=== PATIENT | male | born 1970 | race Two or more races ===

== ENCOUNTER → 2022-02-08 09:20 | Outpatient (BNVA) | payer OTHER, SELFPAY | PROVIDERS: PCP Podiatrist Foot & Ankle Surgery; Visit Provider Anesthesiology | DX: E11.42 Type 2 diabetes mellitus with diabetic polyneuropathy (principal); M79.671 Pain in right foot; M79.672 Pain in left foot; G89.4 Chronic pain syndrome | CPT/HCPCS: 99202 ==

== ENCOUNTER → 2022-11-08 09:45 | Outpatient (BNVA) | payer MEDICARE, MEDICAID, SELFPAY | PROVIDERS: PCP Podiatrist Foot & Ankle Surgery; Visit Provider Anesthesiology | DX: G89.4 Chronic pain syndrome (principal); E11.42 Type 2 diabetes mellitus with diabetic polyneuropathy; M79.671 Pain in right foot; M79.672 Pain in left foot | CPT/HCPCS: 17999; 99212; J7336 ==

== ENCOUNTER 2023-02-07 09:48 | Outpatient (AMB) | payer OTHER, SELFPAY ==
--- NOTE | 2023-02-07 10:11 | MHC.OFFVIS ---
Intake Vital Signs 02/07/23 10:16 02/07/23 12:09 02/07/23 12:11 Height 5 ft 7 in Weight 151 lb BMI 23.6 BP 130/86 132/88 138/88 Blood Pressure Location Lt brachial Rt brachial Rt brachial Position Sitting Sitting Sitting Respiration 18 16 16 Pulse 66 58 69 Pulse Source Pulse Oximeter Pulse Oximeter Pulse Oximeter Pulse Oximetry (%) 100 99 98 Oxygen Delivery Method Room Air Room Air Room Air Comment 15 mins on qutenza 30 mins on qutenza Intake Visit Reasons: Qutenza Intake Note: Patient comes in for Qutenza topical system, he reports pain level of 7-8/10.? Allergies No Known Allergies Allergy (Verified 02/07/23 10:16) HPI HPI Comments History of Present Illness Details Mr. Worley is back in my office for Qutenza treatment. The patient was prescribed EMLA cream. He made application of EMLA cream. Is ready for application of qutenza patches.Reports minimal pain relieve due to Qutenza application. More permanent solution with Nevro SCS was offered to the patient. The patient is negative about it, but took the brochure to read. He will let us know about his ultimate decision. Prior: very pleasant 51 years old gentleman who presents in my office with complains on diabetic polyneuropathy.? He is suffering from diabetes type 2 for many years.? He used to ignore his diabetic medications and his hemoglobin A1c was running very high.? Now he is taking his medications regularly and his hemoglobin A1c is 6.9.? However the damage to the a peripheral nerves apparently was done.? And now he is suffering from severe polyneuropathy of bilateral lower extremities below the level of the knees.? He reports that he cannot do activities of daily living and I cannot take care of himself because of this pain.? He is on permanent disability.? Reports that walking aggravates his pain the most.? His pain is all day long with 7/10 range of pain.? The most severe pain he feels at [place] when his pain is 8/10.? He reports his pain in terms of tissue damage is sharp, cutting, cramping, crushing, hot burning, searing, tiring, exhausting, fearful.is taking metformin to treat his diabetes.? He is also taking levothyroxine.? He is on atorvastatin gabapentin and lorazepam.? He was under care of Dr. Anglin color printer operator and he was told that the his condition does not have meaningful treatment.? He was offered to types of topical medications which did not help his pain.? He reports that gabapentin also does not help his pain. His past medical history significant for diabetes kidney stones , he denies any past surgical history. Social history:? He is disabled individual he stop smoking cigarettes denies drinking alcohol admits caffeinated beverages but denies recreational drugs [facility] Medical History (Updated 02/08/22 @ 10:13 by Vivek Vera MD) Controlled type 2 diabetes with neuropathy Essential hypertension Family history of colon cancer History of nephrolithiasis History of suicidal ideation History of tobacco use Hypothyroidism Severe episode of recurrent major depressive disorder Review of Systems Const All systems reviewed & are unremarkable except as noted in HPI and below ENT Reports Normal hearing present Neuro Reports Normal hearing present, Denies Abnormal speech present, Denies confusion and Denies Sensory deficit (Neuro) Psych Denies confusion Physical Exam Vital Signs: Last Vital Signs Pulse 69 02/07/23 12:11 Resp 16 02/07/23 12:11 BP 138/88 02/07/23 12:11 Pulse Ox 98 02/07/23 12:11 Oxygen Delivery Method Room Air 02/07/23 12:11 BMI result Body Mass Index 23.6 Const General: No confusion Orientation/consciousness: No confusion Eyes General: appearance normal, both eyes and all related structures Pupils: Equal, round and reactive pupils present EOM: EOMs intact bilaterally Neck Neck: Yes full ROM Chest Chest palpation & inspection: normal inspection of the chest Resp Effort & Inspection: normal respiratory effort, able to speak in complete sentences, normal respiratory pattern, no audible wheezes and no cough Cardio Jugular venous distension: no JVD GI Inspection: Yes normal to inspection Neuro General: No confusion Cranial nerves: Yes Equal, round and reactive pupils present and Yes Normal hearing present Speech: No Abnormal speech present Gait exam (Neuro): Normal gait present Motor exam (neuro): 5/5 motor strength present throughout Sensory Exam: No Sensory deficit (Neuro) Extrem General: Yes normal to inspection, Yes full ROM, Yes no clubbing, cyanosis or edema, Yes no pedal edema, Yes no calf tenderness, Yes normal gait and No pedal edema Psych Speech and movement: Normal speech and movement present Affect: normal affect Attitude: cooperative Thought process: Normal thought process present Thought content: Normal thought content present Insight: Good insight present (Psych) Judgement: Good judgement present (Psych) Assessment & Plan Assessment & Plan (1) Diabetic polyneuropathy: Code(s): E11.42 - Type 2 diabetes mellitus with diabetic polyneuropathy (2) Type 2 diabetes mellitus: Code(s): E11.9 - Type 2 diabetes mellitus without complications (3) Bilateral foot pain: Code(s): M79.671 - Pain in right foot; M79.672 - Pain in left foot (4) Chronic pain syndrome: Code(s): G89.4 - Chronic pain syndrome Plan Ruel attended today treatment with Qutenza, vital signs are as above. Next appointment in 3 months. Butch ALMAGUER explained the patient will be thinking about it. The brochure Butch was given to the patient. Coding Level of Care Code Est Pt Level 3 (44646) Diagnoses Diabetic polyneuropathy E11.42 Type 2 diabetes mellitus E11.9 Bilateral foot pain M79.671; M79.672 Chronic pain syndrome G89.4
[2023-02-07 10:16] VITALS: BP 130/86; PULSE 66; RESP 18; O2SAT 100; BMI 23.6
[2023-02-07 12:09] VITALS: BP 132/88; PULSE 58; RESP 16; O2SAT 99
[2023-02-07 12:11] VITALS: BP 138/88; PULSE 69; RESP 16; O2SAT 98
== END 2023-02-07 11:53 | disposition home or self-care (01) ==
PROVIDERS: PCP Podiatrist Foot & Ankle Surgery; Visit Provider Anesthesiology
DX: E11.42 Type 2 diabetes mellitus with diabetic polyneuropathy (principal); M79.671 Pain in right foot; M79.672 Pain in left foot; G89.4 Chronic pain syndrome
CPT/HCPCS: 17999; 99213

== ENCOUNTER → 2023-02-07 09:48 | Outpatient (BNVA) | payer OTHER, SELFPAY | PROVIDERS: PCP Podiatrist Foot & Ankle Surgery; Visit Provider Anesthesiology | DX: E11.42 Type 2 diabetes mellitus with diabetic polyneuropathy (principal); G89.4 Chronic pain syndrome; M79.671 Pain in right foot; M79.672 Pain in left foot; Z79.899 Other long term (current) drug therapy | CPT/HCPCS: 99212 ==

== ENCOUNTER 2023-05-10 13:13 | Outpatient (AMB) | payer OTHER, SELFPAY ==
--- NOTE | 2023-05-10 13:27 | MHC.OFFVIS ---
Intake Vital Signs 05/10/23 14:25 05/10/23 14:25 05/10/23 14:41 Height 5 ft 7 in Weight 153 lb BMI 24.0 BP 132/88 132/79 144/78 H Blood Pressure Location Lt brachial Lt brachial Lt brachial Position Sitting Sitting Sitting Pulse 69 60 61 Pulse Source Pulse Oximeter Pulse Oximeter Pulse Oximeter Pulse Oximetry (%) 97 98 98 Oxygen Delivery Method Room Air Room Air Room Air Comment 15 mins after qutenza application Intake Visit Reasons: Qutenza Application/confirmed Intake Note: Pain today 12/27 Engine Specialist Required: No Accompanied by: Self / Same As Patient Allergies No Known Allergies Allergy (Verified 05/10/23 13:32) HPI HPI Comments History of Present Illness Details Patient presents for 3rd application of capsaicin 8% topical patch for diabetic neuropathy in bilateral feet. Patient also reports chronic left hip pain with walking or weight bearing. He denies any back pain that radiates to his lower extremities. Patient reports he completed left hip imaging last year and was told it was ok. These imaging reports are not available today. Denies any recent cough, cold, infection, fever or other significant changes in medical history since last office visit. PRIOR 02/07/23 Dr. Vera: Mr. Worley is back in my office for Qutenza treatment. The patient was prescribed EMLA cream. He made application of EMLA cream. Is ready for application of qutenza patches.Reports minimal pain relieve due to Qutenza application. More permanent solution with Nevro SCS was offered to the patient. The patient is negative about it, but took the brochure to read. He will let us know about his ultimate decision. PRIOR Dr. Vera: Mr. Worley is very pleasant 51 years old gentleman who presents in my office with complains on diabetic polyneuropathy. He is suffering from diabetes type 2 for many years. He used to ignore his diabetic medications and his hemoglobin A1c was running very high. Now he is taking his medications regularly and his hemoglobin A1c is 6.9. However the damage to the a peripheral nerves apparently was done. And now he is suffering from severe polyneuropathy of bilateral lower extremities below the level of the knees. He reports that he cannot do activities of daily living and I cannot take care of himself because of this pain. He is on permanent disability. Reports that walking aggravates his pain the most. His pain is all day long with 7/10 range of pain. The most severe pain he feels at [place] when his pain is 8/10. He reports his pain in terms of tissue damage is sharp, cutting, cramping, crushing, hot burning, searing, tiring, exhausting, fearful.is taking metformin to treat his diabetes. He is also taking levothyroxine. He is on atorvastatin gabapentin and lorazepam. He was under care of Dr. Anglin 411 directory assistance operator and he was told that the his condition does not have meaningful treatment. He was offered to types of topical medications which did not help his pain. He reports that gabapentin also does not help his pain. His past medical history significant for diabetes kidney stones , he denies any past surgical history. Social history: He is disabled individual he stop smoking cigarettes denies drinking alcohol admits caffeinated beverages but denies recreational drugs. [facility] Medical History History of suicidal ideation Severe episode of recurrent major depressive disorder Essential hypertension Controlled type 2 diabetes with neuropathy Hypothyroidism Family history of colon cancer History of tobacco use History of nephrolithiasis Review of Systems Const All systems reviewed & are unremarkable except as noted in HPI and below Physical Exam Vital Signs: Last Vital Signs Pulse 61 05/10/23 14:41 BP 144/78 H 05/10/23 14:41 Pulse Ox 98 05/10/23 14:41 Oxygen Delivery Method Room Air 05/10/23 14:41 BMI result Body Mass Index 24.0 General: Appears afebrile. Alert and oriented. Mood and affect appropriate. Follows and participates in conversation appropriately. Respiratory effort is unlabored. No cough. Able to transition from sit to stand unassisted. Ambulates with bilaterally normal heel strike and toe off. Back/Spine/Pelvis Cervical Spine: cervical ROM normal and No Cervical spine tenderness Thoracic/Lumbar Spine: thoracic and lumbar spine normal to inspection, No Thoracic/lumbar spine scar(s), thoraco-lumbar ROM normal, Lasegue's sign negative, straight leg raise negative bilaterally, No thoracic spinal tenderness and No lumbar spinal tenderness Pelvis: buttock tenderness on the left Sacroiliac joints: bilaterally (Negative Patricks and Pelvic compression.) tender to palpation Extrem Other: There is a decreased sensation over the soles of the feet and toes. Reports numbness, burning, hot, tingling in both feet, worse at night time. No breaks in the skin. No soft tissue swelling or warmth. +2 pedal pulses bilaterally. General: Yes capillary refill normal, Yes no clubbing, cyanosis or edema and Yes no calf tenderness Left lower extremity: hip/thigh (Mild pain with FADIR) Details: normal to inspection, tenderness Location: of the hip Location: laterally and over the great trochanter and normal ROM; no swelling, no ecchymosis, no crepitus and no unusual warmth Office Procedures Topical Capsaicin Date 1:: 11/08/22 Date 2:: 02/07/23 Date 3:: 05/10/23 Main area of pain on the body: Bilateral feet and toes Location of left foot pain: Plantar, Dorsal, Medial and Lateral Location of right foot pain: Plantar, Dorsal, Medial and Lateral Quality of pain: Aching, Nagging, Burning, Numb-like, Tiring, Shooting and Sharp Details:: Two patches, 560 cm2 were utilized per each foot. EMLA Cream (lidocaine 2.5% and prilocaine 2.5%) was applied at home by patient prior to application of the patches. The patient tolerated the procedure well. Patient?s vitals signs remained stable throughout the procedure. Patient was able to complete the stipulated 30 minutes of the therapeutic application without any discomfort. Office Meds capsaicin-skin cleanser 8 % topical kit Performing Provider: JESUS Colunga Performing Location: [facility] Administered by: JESUS Colunga on 05/10/23 14:05 Dose Route Admin Location Dispensed Lot Number Expiration Date [facility] Web User Experience Strategist 4 ea topical [facility] 4 ea [id number] 06/20/25 17613-142-49 [employer] Results Reviewed Results Reviewed: No imaging reports are available for review. Assessment & Plan Assessment & Plan (1) Diabetic polyneuropathy: Code(s): E11.42 - Type 2 diabetes mellitus with diabetic polyneuropathy (2) Bilateral foot pain: Code(s): M79.671 - Pain in right foot; M79.672 - Pain in left foot (3) Left hip pain: Code(s): M25.552 - Pain in left hip (4) Chronic pain syndrome: Code(s): G89.4 - Chronic pain syndrome Plan Patient is status post 3rd round of application of topical capsaicin 8% for peripheral diabetic neuropathy in bilateral feet. Patient tolerated the procedure without significant discomfort with application of EMLA cream prior to the procedure. He was discharged home in stable condition with discharge instructions. Next Qutenza application scheduled in 3 months. For his left hip pain, we will proceed with xray. Recommend formal physical therapy. All questions and concerns were answered and the patient agreed with the plan. Follow up for xray results and sooner as needed. Greater than 36 minutes were spent in seeing the patient, therapeutic application and in coordination and documentation of the care. Orders: Orders XR hip LT w PEL1V Today M25.552 - Pain in left hip AMB Capsaicin Patch - Practice Supplied Today E11.42 - Type 2 diabetes mellitus with diabetic polyneuropathy, M79.671 - Pain in right foot, M79.672 - Pain in left foot Coding Level of Care Code Est Pt Level 4 (15861) Diagnoses Diabetic polyneuropathy E11.42 Bilateral foot pain M79.671; M79.672 Left hip pain M25.552 Chronic pain syndrome G89.4
[2023-05-10 14:25] VITALS: BP 132/79; BP 132/88; PULSE 60; PULSE 69; O2SAT 97; O2SAT 98; BMI 24.0
[2023-05-10 14:41] VITALS: BP 144/78; PULSE 61; O2SAT 98
== END 2023-05-10 14:46 | disposition home or self-care (01) ==
PROVIDERS: PCP Podiatrist Foot & Ankle Surgery; Visit Provider Nurse Practitioner Family
DX: E11.42 Type 2 diabetes mellitus with diabetic polyneuropathy (principal); M79.671 Pain in right foot; M79.672 Pain in left foot; M25.552 Pain in left hip; G89.4 Chronic pain syndrome
CPT/HCPCS: 17999; 99214

== ENCOUNTER → 2023-05-10 13:13 | Outpatient (BNVA) | payer OTHER, SELFPAY | PROVIDERS: PCP Podiatrist Foot & Ankle Surgery; Visit Provider Nurse Practitioner Family | DX: M25.552 Pain in left hip (principal); M79.671 Pain in right foot; M79.672 Pain in left foot; E11.42 Type 2 diabetes mellitus with diabetic polyneuropathy; G89.4 Chronic pain syndrome | CPT/HCPCS: 17999; 99212; J7336 ==

== ENCOUNTER 2023-05-11 11:21 | Outpatient (REF) | payer OTHER, SELFPAY ==
--- NOTE | ~2023-05-11 | XR_ITS ---
EXAMINATION: XR HIP, LEFT CLINICAL INFORMATION: Pain COMPARISON: None available. TECHNIQUE: Single view the pelvis 2 views of the left hip FINDINGS: No acute visible fracture or dislocation. Joint spaces and alignment are maintained. Soft tissues are unremarkable. XR/XR hip LT w PEL1V IMPRESSION: No acute visible fracture or dislocation.
== END 2023-05-11 11:22 | disposition home or self-care (01) ==
LOC: HO.XRAY 11:21
PROVIDERS: Visit Provider Nurse Practitioner Family
DX: M25.552 Pain in left hip (principal)
CPT/HCPCS: 73502

== ENCOUNTER 2023-08-22 09:54 | Outpatient (AMB) | payer OTHER, SELFPAY ==
--- NOTE | 2023-08-22 09:55 | MHC.OFFVIS ---
Intake Vital Signs 08/22/23 10:04 08/22/23 10:37 08/22/23 11:05 Height 5 ft 7 in Weight 151 lb 8 oz BMI 23.7 BP 134/102 H 106/74 122/74 Blood Pressure Location Lt brachial Rt brachial Rt brachial Position Sitting Sitting Sitting Respiration 16 16 16 Pulse 68 70 71 Pulse Source Pulse Oximeter Pulse Oximeter Pulse Oximeter Pulse Oximetry (%) 100 98 98 Oxygen Delivery Method Room Air Room Air Room Air Comment 15 min on Qutenza 30 min on Qutenza Intake Visit Reasons: Qutenza application/ LVM Intake Note: Patient comes in for Qutenza treatment. Reports pain 7/10. Allergies No Known Allergies Allergy (Verified 08/22/23 10:40) HPI HPI Comments History of Present Illness Details Patient presents for 4rd application of capsaicin 8% topical patch for diabetic neuropathy in bilateral feet. He reported today minor infection on the right foot in the 2nd and 3rd toe, he reported that he applied antibiotics, he said that infection is better. We decided that if he will be feeling more discomfort today because of this infection will stop procedure earlier. . He made application of EMLA cream. Is ready for application of qutenza patches.Reports minimal pain relieve due to Qutenza application. He is negative for Nevro SCS. Mr. Worley is very pleasant 51 years old gentleman who presents in my office with complains on diabetic polyneuropathy. He is suffering from diabetes type 2 for many years. He used to ignore his diabetic medications and his hemoglobin A1c was running very high. Now he is taking his medications regularly and his hemoglobin A1c is 6.9. However the damage to the a peripheral nerves apparently was done. And now he is suffering from severe polyneuropathy of bilateral lower extremities below the level of the knees. He reports that he cannot do activities of daily living and I cannot take care of himself because of this pain. He is on permanent disability. Reports that walking aggravates his pain the most. His pain is all day long with 7/10 range of pain. [facility] Medical History History of suicidal ideation Severe episode of recurrent major depressive disorder Essential hypertension Controlled type 2 diabetes with neuropathy Hypothyroidism Family history of colon cancer History of tobacco use History of nephrolithiasis Review of Systems Const All systems reviewed & are unremarkable except as noted in HPI and below Physical Exam Vital Signs: Last Vital Signs Pulse 71 08/22/23 11:05 Resp 16 08/22/23 11:05 BP 122/74 08/22/23 11:05 Pulse Ox 98 08/22/23 11:05 Oxygen Delivery Method Room Air 08/22/23 11:05 BMI result Body Mass Index 23.7 General: Appears afebrile. Alert and oriented. Mood and affect appropriate. Follows and participates in conversation appropriately. Respiratory effort is unlabored. No cough. Able to transition from sit to stand unassisted. Ambulates with bilaterally normal heel strike and toe off. Back/Spine/Pelvis Cervical Spine: cervical ROM normal and No Cervical spine tenderness Thoracic/Lumbar Spine: thoracic and lumbar spine normal to inspection, No Thoracic/lumbar spine scar(s), thoraco-lumbar ROM normal, Lasegue's sign negative, straight leg raise negative bilaterally, No thoracic spinal tenderness and No lumbar spinal tenderness Pelvis: buttock tenderness on the left Sacroiliac joints: bilaterally (Negative Patricks and Pelvic compression.) tender to palpation Extrem Other: There is a decreased sensation over the soles of the feet and toes. Reports numbness, burning, hot, tingling in both feet, worse at night time. No breaks in the skin. No soft tissue swelling or warmth. +2 pedal pulses bilaterally. General: Yes capillary refill normal, Yes no clubbing, cyanosis or edema and Yes no calf tenderness Left lower extremity: hip/thigh (Mild pain with FADIR) Details: normal to inspection, tenderness Location: of the hip Location: laterally and over the great trochanter and normal ROM; no swelling, no ecchymosis, no crepitus and no unusual warmth Office Procedures Topical Capsaicin Date 4:: 08/22/23 Laterality: Bilateral Location of left foot pain: Plantar Location of right foot pain: Plantar Quality of pain: Burning, Throbbing, Numb-like, Tiring and Unbearable Details:: Two patches, 560 cm2?were utilized per each foot.? EMLA Cream (lidocaine 2.5% and prilocaine 2.5%) was applied at home by patient prior to application of the patches. The patient tolerated the procedure well. Patient?s vitals signs remained stable throughout the procedure. Patient was able to complete the stipulated 30 minutes of the therapeutic application without any discomfort.? Office Meds capsaicin-skin cleanser 8 % topical kit Performing Provider: Vivek Vera MD Performing Location: [facility] Administered by: Vivek Vera MD on 08/22/23 10:07 Dose Route Admin Location Dispensed Lot Number Expiration Date [employer] Account Manager Sales Representative 4 ea topical [facility] 4 ea [id number] 11/18/25 [id number] [employer] Assessment & Plan Assessment & Plan (1) Bilateral foot pain: Code(s): M79.671 - Pain in right foot; M79.672 - Pain in left foot (2) Diabetic polyneuropathy: Code(s): E11.42 - Type 2 diabetes mellitus with diabetic polyneuropathy (3) Type 2 diabetes mellitus: Code(s): E11.9 - Type 2 diabetes mellitus without complications (4) Left hip pain: Code(s): M25.552 - Pain in left hip (5) Chronic pain syndrome: Code(s): G89.4 - Chronic pain syndrome Plan Patient is status post 4th application of topical capsaicin 8% for peripheral diabetic neuropathy in bilateral feet. Patient tolerated the procedure without significant discomfort with application of EMLA cream prior to the procedure. He was discharged home in stable condition with discharge instructions. Next Qutenza application scheduled in 3 months. For his left hip pain, we will proceed with xray. Recommend formal physical therapy. All questions and concerns were answered and the patient agreed with the plan. Follow up for xray results and sooner as needed. 38 minutes were spent in seeing the patient, therapeutic application and in coordination and documentation of the care. Orders: Orders AMB Capsaicin Patch - Practice Supplied Today E11.42 - Type 2 diabetes mellitus with diabetic polyneuropathy, E11.9 - Type 2 diabetes mellitus without complications, M79.671 - Pain in right foot, M79.672 - Pain in left foot Coding Level of Care Code Est Pt Level 3 (91590) Procedure Only Diagnoses Bilateral foot pain M79.671; M79.672 Diabetic polyneuropathy E11.42 Type 2 diabetes mellitus E11.9 Left hip pain M25.552 Chronic pain syndrome G89.4
[2023-08-22 10:04] VITALS: BP 134/102; PULSE 68; RESP 16; O2SAT 100; BMI 23.7
[2023-08-22 10:37] VITALS: BP 106/74; PULSE 70; RESP 16; O2SAT 98
[2023-08-22 11:05] VITALS: BP 122/74; PULSE 71; RESP 16; O2SAT 98
== END 2023-08-22 11:00 | disposition home or self-care (01) ==
PROVIDERS: PCP Podiatrist Foot & Ankle Surgery; Visit Provider Anesthesiology
DX: E11.42 Type 2 diabetes mellitus with diabetic polyneuropathy (principal); M79.671 Pain in right foot; M79.672 Pain in left foot; M25.552 Pain in left hip
CPT/HCPCS: 17999; 99213

== ENCOUNTER → 2023-08-22 09:54 | Outpatient (BNVA) | payer OTHER, SELFPAY | PROVIDERS: PCP Podiatrist Foot & Ankle Surgery; Visit Provider Anesthesiology | DX: E11.42 Type 2 diabetes mellitus with diabetic polyneuropathy (principal); M79.671 Pain in right foot; M79.672 Pain in left foot; M25.552 Pain in left hip; G89.4 Chronic pain syndrome | CPT/HCPCS: 17999; 99212; J7336 ==

== ENCOUNTER 2023-11-28 09:48 | Outpatient (AMB) | payer OTHER, SELFPAY ==
--- NOTE | 2023-11-28 09:53 | MHC.OFFVIS ---
Vital Signs 11/28/23 10:03 11/28/23 10:43 11/28/23 11:22 Height 5 ft 7 in Weight 148 lb 2 oz BMI 23.2 BP 132/90 H 116/74 138/78 Blood Pressure Location Lt brachial Rt brachial Rt brachial Position Sitting Sitting Sitting Respiration 16 16 16 Pulse 100 75 67 Pulse Source Pulse Oximeter Pulse Oximeter Pulse Oximeter Pulse Oximetry (%) 96 96 98 Oxygen Delivery Method Room Air Room Air Room Air Comment 15 mins on Qutenza 30 mins on Qutenza Intake Visit Reasons: Qutenza Intake Note: Patient comes in for Qutenza treatment. Reports pain 7/10. Allergies No Known Allergies Allergy (Verified 11/28/23 10:03) HPI Comments Details: Patient presents for 5th application of capsaicin 8% topical patch for diabetic neuropathy in bilateral feet. He made application of EMLA cream. Is ready for application of qutenza patches.Reports minimal pain relieve due to Qutenza application. He is negative for Nevro SCS. Mr. Worley is very pleasant 51 years old gentleman who presents in my office with complains on diabetic polyneuropathy. He is suffering from diabetes type 2 for many years. He used to ignore his diabetic medications and his hemoglobin A1c was running very high. Now he is taking his medications regularly and his hemoglobin A1c is 6.9. However the damage to the a peripheral nerves apparently was done. And now he is suffering from severe polyneuropathy of bilateral lower extremities below the level of the knees. He reports that he cannot do activities of daily living and I cannot take care of himself because of this pain. He is on permanent disability. Reports that walking aggravates his pain the most. His pain is all day long with 7/10 range of pain. [facility] Medical History History of suicidal ideation Severe episode of recurrent major depressive disorder Essential hypertension Controlled type 2 diabetes with neuropathy Hypothyroidism Family history of colon cancer History of tobacco use History of nephrolithiasis Review of Systems Const All systems reviewed & are unremarkable except as noted in HPI and below Physical Exam Vital Signs: Last Vital Signs Pulse 67 11/28/23 11:22 Resp 16 11/28/23 11:22 BP 138/78 11/28/23 11:22 Pulse Ox 98 11/28/23 11:22 Oxygen Delivery Method Room Air 11/28/23 11:22 BMI result Body Mass Index 23.2 General: Appears afebrile. Alert and oriented. Mood and affect appropriate. Follows and participates in conversation appropriately. Respiratory effort is unlabored. No cough. Able to transition from sit to stand unassisted. Ambulates with bilaterally normal heel strike and toe off. Back/Spine/Pelvis Cervical Spine: cervical ROM normal and No Cervical spine tenderness Thoracic/Lumbar Spine: thoracic and lumbar spine normal to inspection, No Thoracic/lumbar spine scar(s), thoraco-lumbar ROM normal, Lasegue's sign negative, straight leg raise negative bilaterally, No thoracic spinal tenderness and No lumbar spinal tenderness Pelvis: buttock tenderness on the left Sacroiliac joints: bilaterally (Negative Patricks and Pelvic compression.) tender to palpation Extrem Other: There is a decreased sensation over the soles of the feet and toes. Reports numbness, burning, hot, tingling in both feet, worse at night time. No breaks in the skin. No soft tissue swelling or warmth. +2 pedal pulses bilaterally. General: Yes capillary refill normal, Yes no clubbing, cyanosis or edema and Yes no calf tenderness Left lower extremity: hip/thigh (Mild pain with FADIR) Details: normal to inspection, tenderness Location: of the hip Location: laterally and over the great trochanter and normal ROM; no swelling, no ecchymosis, no crepitus and no unusual warmth Office Meds capsaicin-skin cleanser 8 % topical kit Performing Provider: Vivek Vera MD Performing Location: [facility] [place] [facility] Administered by: Vivek Vera MD on 11/28/23 10:12 Dose Route Admin Location Dispensed Lot Number Expiration Date [facility] Dental Billing Specialist 4 ea topical 4 ea [id number] 12/18/25 60531-102-37 [employer] Assessment & Plan Assessment & Plan (1) Type 2 diabetes mellitus: Code(s): E11.9 - Type 2 diabetes mellitus without complications Category: Medical (2) Diabetic polyneuropathy: Code(s): E11.42 - Type 2 diabetes mellitus with diabetic polyneuropathy Category: Medical (3) Bilateral foot pain: Code(s): M79.671 - Pain in right foot; M79.672 - Pain in left foot Category: Medical (4) Chronic pain syndrome: Code(s): G89.4 - Chronic pain syndrome Category: Medical Plan The patient will receive the application of Qutenza today. After this procedure today next appointment is as needed. Orders: Orders AMB Capsaicin Patch - Practice Supplied Today E11.42 - Type 2 diabetes mellitus with diabetic polyneuropathy, E11.9 - Type 2 diabetes mellitus without complications, G89.4 - Chronic pain syndrome, M79.671 - Pain in right foot, M79.672 - Pain in left foot Coding Level of Care Code Est Pt Level 3 (08313) Procedure Only Diagnoses Type 2 diabetes mellitus E11.9 Diabetic polyneuropathy E11.42 Bilateral foot pain M79.671; M79.672 Chronic pain syndrome G89.4
[2023-11-28 10:03] VITALS: BP 132/90; PULSE 100; RESP 16; O2SAT 96; BMI 23.2
[2023-11-28 10:43] VITALS: BP 116/74; PULSE 75; RESP 16; O2SAT 96
[2023-11-28 11:22] VITALS: BP 138/78; PULSE 67; RESP 16; O2SAT 98
== END 2023-11-28 11:26 | disposition home or self-care (01) ==
PROVIDERS: PCP Podiatrist Foot & Ankle Surgery; Visit Provider Anesthesiology
DX: E11.42 Type 2 diabetes mellitus with diabetic polyneuropathy (principal); M79.671 Pain in right foot; M79.672 Pain in left foot; G89.4 Chronic pain syndrome
CPT/HCPCS: 17999; 99213

== ENCOUNTER → 2023-11-28 09:48 | Outpatient (BNVA) | payer OTHER, SELFPAY | PROVIDERS: PCP Podiatrist Foot & Ankle Surgery; Visit Provider Anesthesiology | DX: E11.42 Type 2 diabetes mellitus with diabetic polyneuropathy (principal); M79.671 Pain in right foot; M79.672 Pain in left foot; G89.4 Chronic pain syndrome | CPT/HCPCS: 17999; 99212; J7336 ==

== ENCOUNTER 2024-03-05 09:24 | Outpatient (AMB) | payer OTHER, SELFPAY ==
--- NOTE | 2024-03-05 09:27 | MHC.OFFVIS ---
Vital Signs 03/05/24 09:32 03/05/24 10:57 03/05/24 10:58 Height 5 ft 7 in Weight 149 lb BMI 23.3 BP 145/78 H 138/84 138/82 Blood Pressure Location Lt brachial Lt brachial Rt brachial Position Sitting Sitting Sitting Respiration 14 14 16 Pulse 64 65 66 Pulse Source Pulse Oximeter Pulse Oximeter Pulse Oximeter Pulse Oximetry (%) 98 97 97 Oxygen Delivery Method Room Air Room Air Room Air Comment 15 mins on Qutenza 30 mins on Qutenza Intake Visit Reasons: Qutenza Intake Note: Patient comes in for Qutenza treatment. Reports pain 6-710. Allergies No Known Allergies Allergy (Verified 03/05/24 10:59) HPI Comments Details: Patient presents for 6th application of capsaicin 8% topical patch for diabetic neuropathy in bilateral feet. He he did not make application of EMLA cream. He is ready for application he insists on applying medication without pretreatment with local anesthetic. He stated that last time he had it also without local anesthetic. I explained to him possibility of severe burning sensation, severe blood pressure elevation. Patient stated that he is okay to go for it. He is negative for Nevro SCS. Mr. Worley is very pleasant 51 years old gentleman who presents in my office with complains on diabetic polyneuropathy. He is suffering from diabetes type 2 for many years. He used to ignore his diabetic medications and his hemoglobin A1c was running very high. Now he is taking his medications regularly and his hemoglobin A1c is 6.9. However the damage to the a peripheral nerves apparently was done. And now he is suffering from severe polyneuropathy of bilateral lower extremities below the level of the knees. He reports that he cannot do activities of daily living and I cannot take care of himself because of this pain. He is on permanent disability. Reports that walking aggravates his pain the most. His pain is all day long with 7/10 range of pain. [facility] Medical History History of suicidal ideation Severe episode of recurrent major depressive disorder Essential hypertension Controlled type 2 diabetes with neuropathy Hypothyroidism Family history of colon cancer History of tobacco use History of nephrolithiasis Review of Systems Const All systems reviewed & are unremarkable except as noted in HPI and below Physical Exam Vital Signs: Last Vital Signs Pulse 66 03/05/24 10:58 Resp 16 03/05/24 10:58 BP 138/82 03/05/24 10:58 Pulse Ox 97 03/05/24 10:58 Oxygen Delivery Method Room Air 03/05/24 10:58 BMI result Body Mass Index 23.3 General: Appears afebrile. Alert and oriented. Mood and affect appropriate. Follows and participates in conversation appropriately. Respiratory effort is unlabored. No cough. Able to transition from sit to stand unassisted. Ambulates with bilaterally normal heel strike and toe off. Back/Spine/Pelvis Cervical Spine: cervical ROM normal and No Cervical spine tenderness Thoracic/Lumbar Spine: thoracic and lumbar spine normal to inspection, No Thoracic/lumbar spine scar(s), thoraco-lumbar ROM normal, Lasegue's sign negative, straight leg raise negative bilaterally, No thoracic spinal tenderness and No lumbar spinal tenderness Pelvis: buttock tenderness on the left Sacroiliac joints: bilaterally (Negative Patricks and Pelvic compression.) tender to palpation Extrem Other: There is a decreased sensation over the soles of the feet and toes. Reports numbness, burning, hot, tingling in both feet, worse at night time. No breaks in the skin. No soft tissue swelling or warmth. +2 pedal pulses bilaterally. General: Yes capillary refill normal, Yes no clubbing, cyanosis or edema and Yes no calf tenderness Left lower extremity: hip/thigh (Mild pain with FADIR) Details: normal to inspection, tenderness Location: of the hip Location: laterally and over the great trochanter and normal ROM; no swelling, no ecchymosis, no crepitus and no unusual warmth Office Meds capsaicin-skin cleanser 8 % topical kit Performing Provider: Vivek Vera MD Performing Location: [facility] [place] [facility] Administered by: Vivek Vera MD on 03/05/24 09:30 Dose Route Admin Location Dispensed Lot Number Expiration Date [facility] Registered Sales Assistant 1 ea topical 1 ea [id number] 01/16/26 Assessment & Plan Assessment & Plan (1) Type 2 diabetes mellitus: Code(s): E11.9 - Type 2 diabetes mellitus without complications Category: Medical (2) Diabetic polyneuropathy: Code(s): E11.42 - Type 2 diabetes mellitus with diabetic polyneuropathy Category: Medical (3) Bilateral foot pain: Code(s): M79.671 - Pain in right foot; M79.672 - Pain in left foot Category: Medical (4) Chronic pain syndrome: Code(s): G89.4 - Chronic pain syndrome Category: Medical Plan The patient received the application of Qutenza today. After this procedure today next appointment is as needed. No complications were observed patient went home without immediate complications. His blood pressure remained stable. Orders: Orders AMB Capsaicin Patch - Practice Supplied Today E11.42 - Type 2 diabetes mellitus with diabetic polyneuropathy Coding Level of Care Code Est Pt Level 3 (97825) Procedure Only Diagnoses Type 2 diabetes mellitus E11.9 Diabetic polyneuropathy E11.42 Bilateral foot pain M79.671; M79.672 Chronic pain syndrome G89.4
[2024-03-05 09:32] VITALS: BP 145/78; PULSE 64; RESP 14; O2SAT 98; BMI 23.3
[2024-03-05 10:57] VITALS: BP 138/84; PULSE 65; RESP 14; O2SAT 97
[2024-03-05 10:58] VITALS: BP 138/82; PULSE 66; RESP 16; O2SAT 97
== END 2024-03-05 10:36 | disposition home or self-care (01) ==
PROVIDERS: PCP Podiatrist Foot & Ankle Surgery; Visit Provider Anesthesiology
DX: E11.42 Type 2 diabetes mellitus with diabetic polyneuropathy (principal); M79.671 Pain in right foot; M79.672 Pain in left foot; G89.4 Chronic pain syndrome
CPT/HCPCS: 17999; 99213

== ENCOUNTER → 2024-03-05 09:24 | Outpatient (BNVA) | payer OTHER, SELFPAY | PROVIDERS: PCP Podiatrist Foot & Ankle Surgery; Visit Provider Anesthesiology | DX: E11.42 Type 2 diabetes mellitus with diabetic polyneuropathy (principal); E11.9 Type 2 diabetes mellitus without complications; G89.4 Chronic pain syndrome; M79.671 Pain in right foot; M79.672 Pain in left foot | CPT/HCPCS: 17999; 99212; J7336 ==

== ENCOUNTER 2024-06-07 10:03 | Outpatient (AMB) | payer OTHER, SELFPAY ==
[2024-06-07 10:37] VITALS: BP 141/70; PULSE 70; O2SAT 98; BMI 23.2
--- NOTE | 2024-06-07 10:37 | A.OFFVIS_ITS ---
Vital Signs 06/07/24 10:37 06/07/24 11:15 06/07/24 11:35 Height 5 ft 7 in Weight 148 lb BMI 23.2 BP 141/70 H 137/80 139/72 Blood Pressure Location Rt radial Rt brachial Rt brachial Position Sitting Sitting Sitting Pulse 70 66 Pulse Source Pulse Oximeter Pulse Oximeter Pulse Oximetry (%) 98 Oxygen Delivery Method Room Air Comment 15 mins after qutenza application 30 mins after qutenza application Intake Visit Reasons: Qutenza/tonie from 05/28 Allergies No Known Allergies Allergy (Verified 06/07/24 10:38) Medication List - Last Reconciled 06/07/24 by Dayanna Mills, [employer]NITTED CLOTH EXAMINER atorvastatin 80 mg PO DAILY diclofenac sodium 1% 1 ea topical QID duloxetine 30 mg PO DAILY gabapentin 100 mg PO BID glipizide 5 mg PO QPM levothyroxine 112 mcg PO DAILY lidocaine-prilocaine 2.5-2.5 % 1 appl topical ONCE PRN 5 days lidocaine-prilocaine 2.5-2.5 % 20 grams topical ONCE 1 day MDD see below. lisinopril 2.5 mg PO DAILY meloxicam 15 mg PO DAILY pantoprazole 40 mg PO DAILY sildenafil 50 mg PO venlafaxine 75 mg PO TID PFSH Medical History History of suicidal ideation Severe episode of recurrent major depressive disorder Essential hypertension Controlled type 2 diabetes with neuropathy Hypothyroidism Family history of colon cancer History of tobacco use History of nephrolithiasis Physical Exam Vital Signs: Last Vital Signs Pulse 66 06/07/24 11:15 BP 139/72 06/07/24 11:35 Pulse Ox 98 06/07/24 10:37 Oxygen Delivery Method Room Air 06/07/24 10:37 BMI result Body Mass Index 23.2 Office Meds capsaicin-skin cleanser 8 % topical kit Performing Provider: Vivek Vera MD Performing Location: [facility] [place] [facility] Administered by: Vivek Vera MD on 06/07/24 10:45 Dose Route Admin Location Dispensed Lot Number Expiration Date [facility] [place] 2[facility] Die Mounter 4 ea topical 4 ea [id number] 01/18/26 54339-766-11 [employer] Comments: Two patches, 560 cm2 were utilized per each foot. EMLA Cream (lidocaine 2.5% and prilocaine 2.5%) was applied at home by patient prior to application of the patches. The patient tolerated the procedure well. Patient?s vitals signs remained stable throughout the procedure. Patient was able to complete the stipulated 30 minutes of the therapeutic application without any discomfort. Assessment & Plan Assessment & Plan (1) Diabetic polyneuropathy: Code(s): E11.42 - Type 2 diabetes mellitus with diabetic polyneuropathy Category: Medical (2) Type 2 diabetes mellitus: Code(s): E11.9 - Type 2 diabetes mellitus without complications Category: Medical Plan Repeated procedure of capsaicin application for diabetic neuropathy was performed today. See the description as above. Orders: Orders AMB Capsaicin Patch - Practice Supplied Today E11.42 - Type 2 diabetes mellitus with diabetic polyneuropathy, E11.9 - Type 2 diabetes mellitus without complications Coding Level of Care Code Procedure Only Diagnoses Diabetic polyneuropathy E11.42 Type 2 diabetes mellitus E11.9
[2024-06-07 11:15] VITALS: BP 137/80; PULSE 66
[2024-06-07 11:35] VITALS: BP 139/72
== END 2024-06-07 11:37 | disposition home or self-care (01) ==
PROVIDERS: PCP Podiatrist Foot & Ankle Surgery; Visit Provider Anesthesiology
DX: E11.42 Type 2 diabetes mellitus with diabetic polyneuropathy (principal)
CPT/HCPCS: 17999; 99213

== ENCOUNTER → 2024-06-07 10:03 | Outpatient (BNVA) | payer OTHER, SELFPAY | PROVIDERS: PCP Podiatrist Foot & Ankle Surgery; Visit Provider Anesthesiology | DX: E11.42 Type 2 diabetes mellitus with diabetic polyneuropathy (principal) | CPT/HCPCS: 17999; 99212; J7336 ==

== ENCOUNTER 2024-09-24 09:49 | Outpatient (AMB) | payer OTHER, SELFPAY ==
[2024-09-24 10:05] VITALS: BP 127/79; PULSE 71; O2SAT 98; BMI 23.5
--- NOTE | 2024-09-24 10:05 | MHC.OFFVIS ---
Vital Signs 09/24/24 10:05 09/24/24 10:21 09/24/24 10:40 Height 5 ft 7 in Weight 150 lb BMI 23.5 BP 127/79 127/68 112/64 Blood Pressure Location Lt brachial Rt brachial Lt brachial Position Sitting Sitting Sitting Pulse 71 Pulse Source Pulse Oximeter Pulse Oximetry (%) 98 Oxygen Delivery Method Room Air Intake Visit Reasons: QUTENZA/tonie from 09/06 Intake Note: [facility] [place] # [id number], # [id number],lot [id number], exp., GTIN [id number] Diamond Grader Required: No Allergies No Known Allergies Allergy (Verified 09/24/24 10:06) Medication List - Last Reconciled 09/24/24 by Dayanna Mills, LPN [employer] atorvastatin 80 mg PO DAILY diclofenac sodium 1% 1 ea topical QID duloxetine 30 mg PO DAILY gabapentin 100 mg PO BID glipizide 5 mg PO QPM levothyroxine 112 mcg PO DAILY lidocaine-prilocaine 2.5-2.5 % 1 appl topical ONCE PRN 5 days lidocaine-prilocaine 2.5-2.5 % 20 grams topical ONCE 1 day MDD see below. lisinopril 2.5 mg PO DAILY meloxicam 15 mg PO DAILY pantoprazole 40 mg PO DAILY sildenafil 50 mg PO venlafaxine 75 mg PO TID PFSH Medical History History of suicidal ideation Severe episode of recurrent major depressive disorder Essential hypertension Controlled type 2 diabetes with neuropathy Hypothyroidism Family history of colon cancer History of tobacco use History of nephrolithiasis Physical Exam Vital Signs: Last Vital Signs Pulse 71 09/24/24 10:05 BP 112/64 09/24/24 10:40 Pulse Ox 98 09/24/24 10:05 Oxygen Delivery Method Room Air 09/24/24 10:05 BMI result Body Mass Index 23.5 Office Procedures Topical Capsaicin Laterality: Bilateral Location of left foot pain: Plantar Location of right foot pain: Plantar Quality of pain: Aching, Stabbing, Nagging, Burning, Throbbing, Gnawing, Numb-like, Tiring, Shooting, Penetrating and Sharp Details:: Informed consent was thoroughly explained to the patient. The feet were examined. No bruises no swelling no pathological discharge no redness no micro trauma was noted on visual inspection. He was positioned sitting in the examination chair , he stated that he applied lidocaine patches at home. We applied qutenza patches on the patient's feet. He tolerated procedure fairly well. Office Meds capsaicin-skin cleanser 8 % topical kit Performing Provider: Vivek Vera MD Performing Location: [facility] [place] [facility] Administered by: Vivek Vera MD on 09/24/24 10:48 Dose Route Admin Location Dispensed Lot Number Expiration Date [employer] Fashion Design Professor 1 ea topical 2 ea Assessment & Plan Assessment & Plan (1) Diabetic polyneuropathy: Code(s): E11.42 - Type 2 diabetes mellitus with diabetic polyneuropathy Category: Medical (2) Type 2 diabetes mellitus: Code(s): E11.9 - Type 2 diabetes mellitus without complications Category: Medical (3) Bilateral foot pain: Code(s): M79.671 - Pain in right foot; M79.672 - Pain in left foot Category: Medical (4) Chronic pain syndrome: Code(s): G89.4 - Chronic pain syndrome Category: Medical Plan Continue treatment of the patient's neuropathy as needed as long as it helps the pain of the patient. Orders: Orders AMB Capsaicin Patch - Practice Supplied Today E11.42 - Type 2 diabetes mellitus with diabetic polyneuropathy, E11.9 - Type 2 diabetes mellitus without complications, G89.4 - Chronic pain syndrome, M79.671 - Pain in right foot, M79.672 - Pain in left foot Medications: New capsaicin-skin cleanser 8 % 1 ea topical ONCE 2 ea 0RF E11.42 - Type 2 diabetes mellitus with diabetic polyneuropathy, E11.9 - Type 2 diabetes mellitus without complications, G89.4 - Chronic pain syndrome, M79.671 - Pain in right foot, M79.672 - Pain in left foot Coding Level of Care Code Procedure Only Diagnoses Diabetic polyneuropathy E11.42 Type 2 diabetes mellitus E11.9 Bilateral foot pain M79.671; M79.672 Chronic pain syndrome G89.4
[2024-09-24 10:21] VITALS: BP 127/68
[2024-09-24 10:40] VITALS: BP 112/64
--- OUTSIDE RECORDS SUMMARY | 2024-09-24 11:24 | XMS_ITS | Encounter Summary ---
Author Organization [facility] Address [address] [place] [address] Care Team Providers Care Door Liner Helper Name Role Phone Lasha Campoverde MD Primary Care Provider Reason for Visit * Reason Onset Date Comments Back Pain 09/19/2024 Encounter Details Date Type Department Care Team (Late st Contact Info) Description 09/19/2024 Telephone Adult Medicine [facility] [address] [place] [address] Lasha Campoverde MD [address] [place], [place] Back Pain Social History Tobacco Use Types Packs/Day Years Used Date Smoking Tobacco: Former Smokeless Tobacco: Never Alcohol Use Standard Drinks/Week Comments No 0 (1 standard drink = 0.6 oz pur e alcohol) Housing Instability Answer Date Recorde d Are you worried that in the next 2 months you may not have stable housing? No 08/06/2024 Food Access & Nutrition Answer Date Rec orded Do you have access to a vari ety of food including fruits and vegetables? Yes 08/06/2024 Health Literacy Answer Date Recorded How often do you need to hav e someone help you when you read instructions, pamphlets, or other written material from your doctor or pharmacy? Never 08/06/2024 Caregiver: How often do you need to have someone help you when you read instructions, pamphlets, or other written material from your doctor or pharmacy? Not on file 08/06/2024 Financial Risk Answer Date Recorded How hard is it for you to pa y for the very basics like food, housing, medical care, and air conditioning / heating? Not very hard 08/06/2024 Transportation Answer Date Recorded Has the lack of transportati on kept you from meetings, work, or from getting things needed for daily living? No Has the lack of transportati on kept you from medical appointments or from getting medications? No 08/06/2024 Social Isolation Answer Date Recorded How often do you feel lonely or isolated from th ose around you? Never 08/06/2024 Food Risk Answer Date Recorded Within the past 12 months we worried whether our food would run out before we got money to buy more. Never true 08/06/2024 Within the past 12 months th e food we bought just didn't last and we didn't have money to get more. Never true 08/06/2024 Dependent Care Answer Date Recorded Do you need help finding or paying for care for your loved ones. For example, children's tutor nursery or elderly care for an older adult? No 08/06/2024 Education Answer Date Recorded Do you think completing more education or training, like finishing a GED, going to college, or learning a trade, would be helpful for you? No 08/06/2024 Employment and Income Answer Date Recor ded During the last four weeks, have you been actively looking for work? No 08/06/2024 Living Situation Answer Date Recorded What is your living situation? 0 08/06/2024 Sex and Gender Information Value Date Recorded Sex Assigned at Not on file Legal Sex Male 6:34 AM EST Gender Identity Not on file Sexual Orientation Not on file documented as of this encounter Progress Notes * Maribel Myers RN - 09/19/2024 4:06 PM EDT Back pain for 5-6 days Previously told he has arthritis in his upper back Sharp pain, OTC pain meds with minimal results. no known injury, no slip, trip or fall Started last week went to bed ok and woke up with pain. Is able to bed over. Sitting in the sofa is ok but if bending twisting then has more pain Scheduled eval for 09/21 at 8:15 with PCP and 30 minutes * Elba Hooper - 09/19/2024 3:10 PM EDT Patient call requires triage: Symptoms patient is presenting: pt has been having back pain that is radiating up into his neck How long has patient had these symptoms?: 1 week For ALL patients calling to schedule any appointment (routine, sick visit, follow up, consult, etc.) in the outpatient setting please ask the following questions: Do you have fever of higher than 101, sore throat with difficulty swallowing or severe shortness ofbreath? no If YES to any of these above symptoms, send a message to triage and do not book. Red dot. If no, an audio or video visit should be booked. Have you had close contact with someone with Coronavirus in the last 14 days? no Have you traveled abroad? no Have you traveled recently to another state outside of [place], [place], [place], [place], [place], [place], [place]? no o If yes, did you quarantine for 14 days or have a negative covid test? no If yes to any of the above, patient is not to be scheduled in office until after 14 day quarantine or negative covid test. If pain or injury related was it due to an accident at work or from a motor vehicle accident? If yes, date of accident/Injury: No If yes, gather 3rd democrat insurance information Third Libertarian Information: not applicable PCP: Lasha Campoverde MD [facility]or[facility] MED[facility] / Plan: [employer] ONE CARE / Product Type: *No Product type* /' documented in this encounter Plan of Treatment Upcoming Encounters Date Type Department Care Team (Late st Contact Info) Description 12/04/2024 11:00 AM EDT Office Visit Adult Medicine [facility] [address] [place] [phone] Lasha Campoverde MD [address] [place] [id number] 02/21/2025 10:00 AM EDT Office Visit Orthopedic Surgery - [place] [address] [phone] Kyle Anglin, DPM [address] [id number] documented as of this encounter Visit Diagnoses Not on filedocumented in this encounter Care Teams Door Liner Helper Relationship Specialty Start Date End Date Lasha Campoverde MD [address] [place] [address] PCP - General 07/02/22 documented as of this encounter
--- OUTSIDE RECORDS SUMMARY | 2024-09-24 11:24 | XMS_ITS | Encounter Summary ---
Author Organization [facility] Address [address] [place] [address] Care Team Providers Care Gear Grinding Machine Operator Name Role Phone Lasha Campoverde MD Primary Care Provider Reason for Visit * Reason Comments Back Pain Upper back for 1 wk Encounter Details Date Type Department Care Team (Late st Contact Info) Description 09/21/2024 8:30 AM EDT Office Visit Adult Medicine [facility] [address] [place], [place] [phone] Lasha Campoverde MD [address] [place], [place] Acute upper back pain (Primary Dx); Controlled type 2 diabetes with neuropathy (CMS/HCC); Essential hypertension; Other hyperlipidemia; Hypothyroidism, unspecified type; Severe episode of recurrent major depressive disorder, without psychotic features (CMS/HCC); Chronic constipation Social History Tobacco Use Types Packs/Day Years Used Date Smoking Tobacco: Former Smokeless Tobacco: Never Tobacco Cessation:Counseling Given: Not Answered Alcohol Use Standard Drinks/Week Comments No 0 [...] care for your loved ones. For example, childrens club attendant or elderly care for an older adult? [...] on file documented as of this encounter Last Filed Vital Signs Vital Sign Reading Time Taken Comments Blood Pressure 136/75 09/21/2024 8:01 AM EDT Pulse 75 09/21/2024 8:01 AM EDT Temperature 36.3 ??C (97.4 ??F) 09/21/2024 8:01 AM ED T Respiratory Rate 14 09/21/2024 8:01 AM EDT Oxygen Saturation - - Inhaled Oxygen Concentration - - Weight 68.6 kg (151 lb 3.2 oz) 09/21/2024 8:01 A M EDT Height 170.2 cm (5' 7 ) 09/21/2024 8:01 AM EDT Body Mass Index 23.68 09/21/2024 8:01 AM EDT documented in this encounter Ordered Prescriptions Prescription Sig Dispense Quantity Refills Last Filled Start Date End Date cyclobenzaprine (FLEXERIL) 10 mg tabletIndications: Acute upper back pain Take 1 tablet (10 mg total) by mouth at bedtime as needed for muscle spasms. 30 tablet 09/21/2024 lidocaine (Salonpas, lidocaine,) 4 % patch Apply 1 patch topically 1 (one) time each day. Take it off after 12 hours and apply the next patch after 12 hours break. 30 patch 09/21/2024 pantoprazole (PROTONIX) 20 mg EC tablet Take 1 tablet (20 mg total) by mouth 1 (one) time each day before breakfast. 90 tablet 1 09/21/2024 glipiZIDE (GLUCOTROL) 5 mg tablet Take 1 tablet (5 mg total) by mouth 2 (two) times a day before meals. 180 tablet 09/21/2024 metFORMIN (GLUCOPHAGE) 1,000 mg tablet Take 1 tablet (1,000 mg total) by mouth 2 (two) times a day with meals. 180 tablet 09/21/2024 lisinopriL (PRINIVIL,ZESTRIL) 2.5 mg tablet at bedtime. 90 tablet 1 09/21/2024 levothyroxine (SYNTHROID, LEVOTHROID) 112 mcg tablet Take 1 tablet (112 mcg total) by mouth 1 (one) time each day before breakfast. 90 tablet 1 09/21/2024 buPROPion (WELLBUTRIN) 100 mg tablet Take 100 mg by mouth daily. 90 tablet 1 09/21/2024 atorvastatin (LIPITOR) 80 mg tablet at bedtime. 90 tablet 1 09/21/2024 cyclobenzaprine (FLEXERIL) 10 mg tabletIndications: Acute upper back pain Take 1 tablet (10 mg total) by mouth 3 (three) times a day if needed for muscle spasms. 30 tablet 09/21/2024 methocarbamoL (ROBAXIN) 500 mg tablet Take 1 tablet (500 mg total) by mouth 3 (three) times a day. 270 tablet 09/21/2024 5 documented in this encounter Progress Notes * Lasha Campoverde MD - 09/21/2024 8:30 AM EDTAddended by: LASHA CAMPOVERDE on: 09/21/2024 01:06 PM Modules accepted: Orders * Lasha Campoverde MD - 09/21/2024 8:30 AM EDT SUBJECTIVE: Ruel Worley is a 53 y.o. male who presents today for Chief Complaint Patient presents with Back Pain Upper back for 1 wk HPI: Patient presenting for med review as well as upper back pain for the past 2 weeks. Denies any trauma or falls. Feels right side of her upper back is slightly more prominent as compared to the left side. Complains of pain in the right upper side as well. Current Meds: Current Outpatient Medications: atorvastatin (LIPITOR) 80 mg tablet, at bedtime., Disp: 90 tablet, Rfl: 1 blood sugar diagnostic (FreeStyle Lite Strips) test strip, Use twice daily with device, Disp: , Rfl: buPROPion (WELLBUTRIN) 100 mg tablet, Take 100 mg by mouth daily., Disp: 90 tablet, Rfl: 1 diclofenac (VOLTAREN) 1 % topical gel, Apply 4 g topically 2 times daily., Disp: , Rfl: ferrous sulfate 325 mg (65 mg iron) EC tablet, Take 1 tablet (325 mg total) by mouth 1 (one) time each day with breakfast. Do not crush, chew, or split., Disp: 90 each, Rfl: 1 FREESTYLE LANCETS MISC, Use twice daily with device, Disp: , Rfl: glipiZIDE (GLUCOTROL) 5 mg tablet, Take 1 tablet (5 mg total) by mouth 2 (two) times a day before meals., Disp: 180 tablet, Rfl: 0 levothyroxine (SYNTHROID, LEVOTHROID) 112 mcg tablet, Take 1 tablet (112 mcg total) by mouth 1 (one) time each day before breakfast., Disp: 90 tablet, Rfl: 1 linaCLOtide (Linzess) 145 mcg capsule, Take 1 capsule (145 mcg total) by mouth 1 (one) time each day., Disp: 90 each, Rfl: 0 lisinopriL (PRINIVIL,ZESTRIL) 2.5 mg tablet, at bedtime., Disp: 90 tablet, Rfl: 1 loratadine (CLARITIN) 10 mg tablet, Take 1 Tablet by mouth daily for 360 days., Disp: , Rfl: LORazepam (ATIVAN) 1 mg tablet, Take 1 Tablet by mouth daily as needed for Anxiety., Disp: , Rfl: metFORMIN (GLUCOPHAGE) 1,000 mg tablet, Take 1 tablet (1,000 mg total) by mouth 2 (two) times a daywith meals., Disp: 180 tablet, Rfl: 0 pantoprazole (PROTONIX) 20 mg EC tablet, Take 1 tablet (20 mg total) by mouth 1 (one) time each daybefore breakfast., Disp: 90 tablet, Rfl: 1 pregabalin (LYRICA) 150 mg capsule, Take 1 capsule (150 mg total) by mouth 3 (three) times a day. Max Daily Amount: 450 mg, Disp: 270 each, Rfl: 1 sildenafiL (VIAGRA) 50 mg tablet, Take 1 tablet by mouth as needed 30-60 minutes prior to sexual intercourse, maximum 2 tablets daily., Disp: , Rfl: venlafaxine (EFFEXOR) 75 mg tablet, Take 1 Tab by mouth 3 times daily., Disp: , Rfl: lidocaine (Salonpas, lidocaine,) 4 % patch, Apply 1 patch topically 1 (one) time each day. Take it off after 12 hours and apply the next patch after 12 hours break., Disp: 30 patch, Rfl: 0 methocarbamoL (ROBAXIN) 500 mg tablet, Take 1 tablet (500 mg total) by mouth 3 (three) times a day., Disp: 270 tablet, Rfl: 0 Allergies: No Known Allergies Immunizations: Immunization History Administered Date(s) Administered Influenza Quadravalent, MDCK, 0.5ml, preservative free (Flucelvax) 6mo and older 07/01/2021, 05/18/2022 Influenza Quadravalent, MDCK, 0.5ml, with preservative (Flucelvax) 6mo and older 03/26/2018 TBT Group SARS-CoV-2 COVID-19, mRNA, LNP-S, preservative free 09/11/2020, 10/02/2020, 07/10/2021 Pneumococcal conjugate 13 valent (Prevnar 13, PCV13) 2mo and older 05/30/2020 Tdap Tetanus diptheria acellular pertussis (Boostrix; Adacel) 7yo and older 05/30/2020 Active Problems: Patient Active Problem List Diagnosis Controlled type 2 diabetes with neuropathy ([facility]/HCC) Essential hypertension Hypothyroidism Hyperlipidemia Severe episode of recurrent major depressive disorder, without psychotic features ([facility]/HCC) Chronic constipation Gastroesophageal reflux disease without esophagitis Iron deficiency HISTORY: Past Medical History: Diagnosis Date Essential hypertension 10/06/2018 DX:Essential hypertension High cholesterol DX:High cholesterol History of nephrolithiasis DX:History of nephrolithiasis; COMMENT: [facility] History of suicidal ideation 10/06/2018 DX:History of suicidal ideation; COMMENT: Inpatient psych 08/2018 History of tobacco abuse DX:History of tobacco abuse Microscopic hematuria DX:Microscopic hematuria Type 2 diabetes mellitus DX:Type 2 diabetes mellitus (HCC) Type 2 diabetes with nephropathy ([facility]/HCC) 08/28/2020 Uncontrolled type 2 diabetes mellitus with diabetic neuropathy, without long- term current use of insulin 03/02/2018 DX:Uncontrolled type 2 diabetes mellitus with diabetic neuropathy, without long- term current use ofinsulin Past Surgical History: Procedure Laterality Date LITHOTRIPSY PROCEDURE: HISTORICAL LITHOTRIPSY Family History Problem Relation Name Age of Onset Colon cancer Mother 48.00 Coronary artery disease Father 40.00 Prostate cancer Paternal Grandfather Coronary artery disease Brother Social History Socioeconomic History Marital status: Single Spouse name: Not on file Number of children: Not on file Years of education: Not on file Highest education level: Not on file Occupational History Not on file Tobacco Use Smoking status: Former Smokeless tobacco: Never Substance and Sexual Activity Alcohol use: No Drug use: No Sexual activity: Not on file Comment: Other Topics Concern Not on file Social History Narrative Not working. ROS: GENERAL: Negative for malaise, significant weight loss and fever RESPIRATORY: No cough, wheezing or shortness of breath CARDIOVASCULAR: Negative for chest pain, leg swelling and palpitations GI: Negative for abdominal discomfort, changes in bowel habits, blood in stool or black stools : Negative for dysuria, frequency, and incontinence VITAL SIGNS Vitals: 09/21/24 0801 BP: 136/75 Pulse: 75 Resp: 14 Temp: 36.3 ??C (97.4 ??F) TempSrc: Temporal Weight: 68.6 kg (151 lb 3.2 oz) Height: 1.702 m (67 ) Body mass index is 23.68 kg/m??. Body surface area is 1.8 meters squared. PHYSICAL EXAM: Blood pressure 136/75, pulse 75, temperature 36.3 ??C (97.4 ??F), temperature source Temporal, resp. rate 14, height 1.702 m (67 ), weight 68.6 kg (151 lb 3.2 oz). Body mass index is 23.68 kg/m??. Plan is deferred until next visit APPEARANCE: Alert and in no acute distress BACK: no pain to palpation, good flexion and extension, and myofascial swelling noted in the right upper back. EXTREMITIES: Extremities warm and well perfused without clubbing, cyanosis, or edema NEURO: Awake, alert and oriented x 3 and reflexes symmetrical Recent Results (from the past 4 weeks) Lipid panel with reflex to direct LDL Collection Time: 09/05/24 10:47 AM Result Value Ref Range Cholesterol 113 0 - 200 mg/dL Triglycerides 69 0 - 150 mg/dL HDL 53 >=40 mg/dL LDL Calculated 46 0 - 100 mg/dL VLDL Cholesterol Carlos 13.8 mg/dL Non HDL Chol. (LDL+VLDL) 60 <145 mg/dL Chol/HDL Ratio 2.1 0.0 - 4.4 Microalbumin creatinine urine ratio Collection Time: 09/05/24 10:47 AM Result Value Ref Range Creatinine, Urine 35.0 mg/dL Microalb, Ur 5.5 0.0 - 29.0 mg/L Microalb/Creat Ratio 16 <30 mg/g creat Comprehensive metabolic panel Collection Time: 09/05/24 10:47 AM Result Value Ref Range Sodium 138 133 - 145 mmol/L Potassium 4.1 3.5 - 5.5 mmol/L Chloride 103 96 - 110 mmol/L CO2 27 21 - 32 mmol/L Anion Gap 8 3 - 11 Glucose 154 (H) 70 - 100 mg/dL BUN 13 5 - 25 mg/dL Creatinine 0.87 0.70 - 1.30 mg/dL eGFR 104 >=60 mL/min/1.73m2 BUN/Creatinine Ratio 14.9 Calcium 9.2 8.5 - 10.5 mg/dL AST (SGOT) 32 10 - 42 unit/L ALT (SGPT) 51 10 - 60 unit/L Alkaline Phosphatase 121 42 - 121 unit/L Total Protein 7.4 6.0 - 8.0 g/dL Albumin 4.1 3.2 - 5.0 g/dL Total Bilirubin 0.6 0.0 - 1.4 mg/dL Hemoglobin A1c Collection Time: 09/05/24 10:47 AM Result Value Ref Range Hemoglobin A1C 7.1 (H) <6.5 % Mean Bld Glu Estim. 157 mg/dL CBC auto differential Collection Time: 09/05/24 10:47 AM Result Value Ref Range WBC 7.7 4.8 - 10.8 K/mcL RBC 5.10 4.50 - 5.50 M/mcL Hemoglobin 15.5 13.5 - 17.5 g/dL Hematocrit 46.3 42.0 - 54.0 % MCV 90.1 79.0 - 98.0 FL MCH 30.2 27.0 - 32.0 pcg MCHC 33.5 32.0 - 37.0 g/dL RDW 13.3 11.0 - 15.0 % Platelets 296 130 - 400 K/mcL MPV 10.6 7.0 - 11.0 FL NRBC 0.0 <1.0 % NRBC Absolute 0.00 <0.10 K/mcL Neutrophils Relative 64.8 % Lymphocytes Relative 25.4 % Monocytes Relative 7.5 % Eosinophils Relative 1.3 % Basophils Relative 0.9 % Immature Granulocytes Relative 0.1 % Neutrophils Absolute 4.98 1.50 - 7.00 K/mcL Lymphocytes Absolute 1.95 1.00 - 5.00 K/mcL Monocytes Absolute 0.58 0.20 - 1.00 K/mcL Eosinophils Absolute 0.10 0.00 - 0.50 K/mcL Basophils Absolute 0.07 0.00 - 0.20 K/mcL Immature Granulocytes Absolute 0.01 0.00 - 0.03 K/mcL Urinalysis with reflex microscopic and culture Collection Time: 09/05/24 10:47 AM Result Value Ref Range Specific Champion Urine 1.010 1.003 - 1.030 pH, Urine 7.5 5.0 - 8.0 pH Leukocytes, Urine Negative Negative Nitrite, Urine Negative Negative Protein, Urine Negative <=Trace mg/dL Glucose, Urine Negative Negative mg/dL Ketones, Urine Negative Negative mg/dL Urobilinogen, Urine 1.0 0.2 - 1.0 mg/dL Bilirubin, Urine Negative Negative Blood, Urine Negative Negative Ace urine culture tube Collection Time: 09/05/24 10:47 AM Result Value Ref Range Extra Tube Hold for add-ons. ASSESSMENT/PLAN: Ruel was seen today for back pain. Diagnoses and all orders for this visit: Acute upper back pain (Primary) - XR Thoracic Spine 2 Views; Future Controlled type 2 diabetes with neuropathy (CMS/HCC) Essential hypertension Other hyperlipidemia Hypothyroidism, unspecified type Severe episode of recurrent major depressive disorder, without psychotic features (CMS/HCC) Chronic constipation Other orders - atorvastatin (LIPITOR) 80 mg tablet; at bedtime. - buPROPion (WELLBUTRIN) 100 mg tablet; Take 100 mg by mouth daily. - levothyroxine (SYNTHROID, LEVOTHROID) 112 mcg tablet; Take 1 tablet (112 mcg total) by mouth 1 (one) time each day before breakfast. - lisinopriL (PRINIVIL,ZESTRIL) 2.5 mg tablet; at bedtime. - metFORMIN (GLUCOPHAGE) 1,000 mg tablet; Take 1 tablet (1,000 mg total) by mouth 2 (two) times a day with meals. - glipiZIDE (GLUCOTROL) 5 mg tablet; Take 1 tablet (5 mg total) by mouth 2 (two) times a day beforemeals. - pantoprazole (PROTONIX) 20 mg EC tablet; Take 1 tablet (20 mg total) by mouth 1 (one) time each day before breakfast. - methocarbamoL (ROBAXIN) 500 mg tablet; Take 1 tablet (500 mg total) by mouth 3 (three) times a day. - lidocaine (Salonpas, lidocaine,) 4 % patch; Apply 1 patch topically 1 (one) time each day. Take it off after 12 hours and apply the next patch after 12 hours break. Plan Patient was acute upper thoracic back pain, appears to be myofascial back pain. Will treat symptomatically with Robaxin as well as lidocaine 4% patch. Will obtain x-ray of the thoracic spine region as well. Continue Linzess for constipation. Continue thyroxine for hypothyroidism. Continue atorvastatin forhyperlipidemia. Stop iron given recent CBC was normal. He follows with external psychiatry and is on Effexor, Wellbutrin gabapentin, lorazepam for depression and anxiety. He has type 2 diabetes that is well-controlled. A1c within goal. Continue metformin, glipizide for now. Unfortunately continues to experience neuropathy. He is on pregabalin as well as Effexor. He isalso on capsaicin patches every 3 months. I have applied the code G2211 to this patient???s visit as the primary care provider dealing with (above mentioned conditions) leading to the extensive work up, and management associated with the medical care of this patient. This patient???s serious conditions and complex medical conditions also required several consultants needing management and coordination through my office. I have reviewed all information as it pertains to the management of this patient for final approval. Follow up for Next scheduled follow-up. Orders Placed This Encounter Procedures XR Thoracic Spine 2 Views Lasha Campoverde MD * Lasha Campoverde MD - 09/21/2024 8:30 AM EDT X-ray discussed over the phone with the patient. Advised to continue with muscle relaxer. States Robaxin is not covered insurance. Will try Flexeril. documented in this encounter Plan of Treatment Upcoming Encounters Date Type Department Care Team (Late st Contact Info) Description 12/04/2024 11:00 AM EDT Office Visit Adult Medicine [facility] [address] [place] [phone] Lasha Campoverde MD [address] [place] [address] 02/21/2025 10:00 AM EDT Office Visit Orthopedic Surgery - [place] [address] [facility] [address] [place] [id number] Kyle Anglin, YADI [address] [address] documented as of this encounter Results * XR Thoracic Spine 2 Views (09/21/2024 9:10 AM EDT) Anatomical Region Laterality Modality Spine, T-spine Radiographic Melyssa ging 09/21/2024 9:20 AM EDT Impressions 09/21/2024 9:22 AM EDT No acute compression fracture. -------- FINAL REPORT -------- Dictated By: Guy Pedersen Dictated Date: 09/21/2024 09:20 ET Assigned Physician: Guy Pedersen Reviewed and Electronically Signed By: Guy Pedersen Signed Date: 09/21/2024 09:22 ET Workstation ID: [id number] Transcribed By: Self Edit Transcribed Date: 09/21/2024 09:20 ET Narrative 09/21/2024 9:22 AM EDT XR THORACIC SPINE 2 VIEWS Reason: acute right upper back pain Comparison: Radiographs on July 05, 2017 FINDINGS: Normal alignment. ??Evaluation of the upper thoracic spine is limited on the lateral view due to superimposed structures. ??No compression fracture of the visualized vertebral bodies. ??Disc spaces are preserved. ??Very tiny marginal osteophytes at a few levels. ??No evidence of paraspinal soft tissue mass. Procedure Note Guy Pedersen MD - 09/21/2024 XR THORACIC SPINE 2 VIEWS Reason: acute right upper back pain Comparison: Radiographs on July 05, 2017 FINDINGS: Normal alignment. Evaluation of the upper thoracic spine is limited onthe lateral view due to superimposed structures. No compression fractureof the visualized vertebral bodies. Disc spaces are preserved. Very tinymarginal osteophytes at a few levels. No evidence of paraspinal softtissue mass. IMPRESSION: No acute compression fracture. -------- FINAL REPORT -------- Dictated By: Guy Pedersen Dictated Date: 09/21/2024 09:20 ET Assigned Physician: Guy Pedersen Reviewed and Electronically Signed By: Guy Pedersen Signed Date: 09/21/2024 09:22 ET Workstation ID: [id number] Transcribed By: Self Edit Transcribed Date: 09/21/2024 09:20 ET us Lasha Campoverde MD IMG XR PROCEDURES Estela l Result documented in this encounter Visit Diagnoses Diagnosis Acute upper back pain- Primary Controlled type 2 diabetes with neuropathy (CMS/HCC) Type II or unspecified type diabetes mellitus with neurological manifestations, not stated as uncontrolled Essential hypertension Unspecified essential hypertension Other hyperlipidemia Hypothyroidism, unspecified type Severe episode of recurrent major depressive disorder, without psychotic features (CMS/HCC) Chronic constipation Unspecified constipation Acute upper back pain documented in this encounter Discontinued Medications Medication Sig Discontinue Reason Start Date End Da te buPROPion (WELLBUTRIN) 100 mg tablet Take 100 mg by mouth daily. Reorder 09/21/2024 levothyroxine (SYNTHROID, LEVOTHROID) 112 mcg tablet TAKE 1 TABLET BY MOUTH ONCE DAILY IN THE MORNING BEFORE BREAKFAST Reorder 06/01/2024 09/21/2024 lisinopriL (PRINIVIL,ZESTRIL) 2.5 mg tablet TAKE 1 TABLET BY MOUTH AT BEDTIME Reorder 07/04/2024 09/21/2024 glipiZIDE (GLUCOTROL) 5 mg tablet TAKE 1 TABLET BY MOUTH TWICE DAILY BEFORE MEALS Reorder 07/04/2024 09/21/2024 metFORMIN (GLUCOPHAGE) 1,000 mg tablet TAKE 1 TABLET BY MOUTH TWICE DAILY WITH MEALS Reorder 07/04/2024 09/21/2024 atorvastatin (LIPITOR) 80 mg tablet TAKE 1 TABLET BY MOUTH AT BEDTIME Reorder 07/04/2024 09/21/2024 pantoprazole (PROTONIX) 20 mg EC tablet TAKE 1 TABLET BY MOUTH ONCE DAILY IN THE MORNING BEFORE BREAKFAST Reorder 07/09/2024 09/21/2024 ferrous sulfate 325 mg (65 mg iron) EC tablet Take 1 tablet (325 mg total) by mouth 1 (one) time each day with breakfast. Do not crush, chew, or split. 05/10/2024 09/21/2024 methocarbamoL (ROBAXIN) 500 mg tablet Take 1 tablet (500 mg total) by mouth 3 (three) times a day. 09/21/2024 09/21/2024 cyclobenzaprine (FLEXERIL) 10 mg tabletIndications:Acute upper back pain Take 1 tablet (10 mg total) by mouth 3 (three) times a day if needed for muscle spasms. 09/21/2024 09/21/2024 documented as of this encounter Care Teams Gear Grinding Machine Operator Relationship Specialty Start Date End Date Lasha Campoverde MD [address] [place] [address] PCP - General 07/02/22 documented as of this encounter
--- OUTSIDE RECORDS SUMMARY | 2024-09-24 11:24 | XMS_ITS | Encounter Summary ---
Author Organization [facility] Address [address] [place] [address] Care Team Providers Care Help Aid Name Role Phone Lasha Campoverde MD Primary Care Provider Encounter Details Date Type Department Care Team (Latest Contact Info) Description 09/21/2024 9:01 AM EDT - 09/21/2024 11:59 PM EDT Hospital Encounter [facility] [address] [place] [address] Acute upper back pain Discharge Disposition: Home or Self Care Social History Tobacco Use Types Packs/Day Years [...] care for your loved ones. For example, child care center administrator or elderly care for an older adult? [...] on file documented as of this encounter Medications at Time of Discharge atorvastatin (LIPITOR) 80 mg tablet at bedtime. 90 tablet 1 09/21/2024 blood sugar diagnostic (FreeStyle Lite Strips) test strip Use twice daily with device 10/31/2017 buPROPion (WELLBUTRIN) 100 mg tablet Take 100 mg by mouth daily. 90 tablet 1 09/21/2024 cyclobenzaprine (FLEXERIL) 10 mg tabletIndications:Ac navi upper back pain Take 1 tablet (10 mg total) by mouth at bedtime as needed for muscle spasms. 30 tablet 09/21/2024 diclofenac (VOLTAREN) 1 % topical gel Apply 4 g topically 2 times daily. 02/23/2023 FREESTYLE LANCETS MISC Use twice daily with device 10/31/2017 glipiZIDE (GLUCOTROL) 5 mg tablet Take 1 tablet (5 mg total) by mouth 2 (two) times a day before meals. 180 tablet 09/21/2024 levothyroxine (SYNTHROID, LEVOTHROID) 112 mcg tablet Take 1 tablet (112 mcg total) by mouth 1 (one) time each day before breakfast. 90 tablet 1 09/21/2024 lidocaine (Salonpas, lidocaine,) 4 % patch Apply 1 patch topically 1 (one) time each day. Take it off after 12 hours and apply the next patch after 12 hours break. 30 patch 09/21/2024 linaCLOtide (Linzess) 145 mcg capsule Take 1 capsule (145 mcg total) by mouth 1 (one) time each day. 90 each 08/06/2024 lisinopriL (PRINIVIL,ZESTRIL) 2.5 mg tablet at bedtime. 90 tablet 1 09/21/2024 loratadine (CLARITIN) 10 mg tablet Take 1 Tablet by mouth daily for 360 days. 10/12/2023 LORazepam (ATIVAN) 1 mg tablet Take 1 Tablet by mouth daily as needed for Anxiety. 05/20/2022 metFORMIN (GLUCOPHAGE) 1,000 mg tablet Take 1 tablet (1,000 mg total) by mouth 2 (two) times a day with meals. 180 tablet 09/21/2024 pantoprazole (PROTONIX) 20 mg EC tablet Take 1 tablet (20 mg total) by mouth 1 (one) time each day before breakfast. 90 tablet 1 09/21/2024 pregabalin (LYRICA) 150 mg capsuleIndications:C ontrolled type 2 diabetes with neuropathy (CMS/HCC),Diabetic polyneuropathy associated with type 2 diabetes mellitus Take 1 capsule (150 mg total) by mouth 3 (three) times a day. Max Daily Amount: 450 mg 270 each 1 08/06/2024 sildenafiL (VIAGRA) 50 mg tablet Take 1 tablet by mouth as needed 30-60 minutes prior to sexual intercourse, maximum 2 tablets daily. 01/13/2022 venlafaxine (EFFEXOR) 75 mg tablet Take 1 Tab by mouth 3 times daily. 11/22/2019 documented as of this encounter Discharge Disposition Disposition Code Departure Means Destination Home or Self Care documented in this encounter Plan of Treatment Upcoming Encounters Date Type Department Care Team (Late st Contact Info) Description 12/04/2024 11:00 AM EDT Office Visit Adult Medicine [facility] [address] [place] [address] Lasha Campoverde MD [address] [place] [address] 02/21/2025 10:00 AM EDT Office Visit Orthopedic Surgery - [place] [id number] [phone] Kyle Anglin, DPM [address] [id number] documented as of this encounter Procedures Procedure Name Priority Date/Time Associated Diagnosis Comments XR THORACIC SPINE 2 VIEWS Routine 09/21/2024 9:10 AM EDT Acute upper back pain documented in this encounter Results * XR Thoracic Spine [...] Signed Date: 09/21/2024 09:22 ET Workstation ID: [id number] Transcribed By: Self Edit Transcribed Date: 09/21/2024 [...] Signed Date: 09/21/2024 09:22 ET Workstation ID: [id number] Transcribed By: Self Edit Transcribed Date: 09/21/2024 09:20 ET Lasha Campoverde MD IMG XR PROCEDURES Estela l Result documented in this encounter Visit Diagnoses Diagnosis Acute upper back pain documented in this encounter Care Teams Help Aid Relationship Specialty Start Date End Date Lasha Campoverde MD [address] [place] [address] PCP - General 07/02/22 documented as of this encounter
--- OUTSIDE RECORDS SUMMARY | 2024-09-24 11:24 | XMS_ITS | Clinical Summary ---
Author Organization [facility] [address] [facility] Address [address] [place], [place] Phone Care Team Providers Care Roll Forming Supervisor Name Role Phone Lasha Campoverde MD Primary Care Provider Allergies No known active allergies Medications FREESTYLE LANCETS MISC Use twice daily with device 11/01/19 18 Active blood sugar diagnostic (FreeStyle Lite Strips) test strip Use twice daily with device 11/01/19 18 Active diclofenac (VOLTAREN) 1 % topical gel Apply 4 g topically 2 times daily. 02/24/20 23 Active loratadine (CLARITIN) 10 mg tablet Take 1 Tablet by mouth daily for 360 days. 10/12/19 24 2024 Active LORazepam (ATIVAN) 1 mg tablet Take 1 Tablet by mouth daily as needed for Anxiety. 05/20/20 22 Active sildenafiL (VIAGRA) 50 mg tablet Take 1 tablet by mouth as needed 30-60 minutes prior to sexual intercourse, maximum 2 tablets daily. 01/14/20 22 Active venlafaxine (EFFEXOR) 75 mg tablet Take 1 Tab by mouth 3 times daily. 11/22/19 20 Active pregabalin (LYRICA) 150 mg capsuleIndication s:Controlled type 2 diabetes with neuropathy (CMS/HCC),Diabeti c polyneuropathy associated with type 2 diabetes mellitus Take 1 capsule (150 mg total) by mouth 3 (three) times a day. Max Daily Amount: 450 mg 270 each 1 08/06/19 25 Active linaCLOtide (Linzess) 145 mcg capsule Take 1 capsule (145 mcg total) by mouth 1 (one) time each day. 90 each 08/06/19 25 Active atorvastatin (LIPITOR) 80 mg tablet at bedtime. 90 tablet 1 09/22/19 25 Active buPROPion (WELLBUTRIN) 100 mg tablet Take 100 mg by mouth daily. 90 tablet 1 09/22/19 25 Active levothyroxine (SYNTHROID, LEVOTHROID) 112 mcg tablet Take 1 tablet (112 mcg total) by mouth 1 (one) time each day before breakfast. 90 tablet 1 09/22/19 25 Active lisinopriL (PRINIVIL,ZESTRIL ) 2.5 mg tablet at bedtime. 90 tablet 1 09/22/19 25 Active metFORMIN (GLUCOPHAGE) 1,000 mg tablet Take 1 tablet (1,000 mg total) by mouth 2 (two) times a day with meals. 180 tablet 09/22/19 25 Active glipiZIDE (GLUCOTROL) 5 mg tablet Take 1 tablet (5 mg total) by mouth 2 (two) times a day before meals. 180 tablet 09/22/19 25 Active pantoprazole (PROTONIX) 20 mg EC tablet Take 1 tablet (20 mg total) by mouth 1 (one) time each day before breakfast. 90 tablet 1 09/22/19 25 Active lidocaine (Salonpas, lidocaine,) 4 % patch Apply 1 patch topically 1 (one) time each day. Take it off after 12 hours and apply the next patch after 12 hours break. 30 patch 09/22/19 25 Active cyclobenzaprine (FLEXERIL) 10 mg tabletIndications :Acute upper back pain Take 1 tablet (10 mg total) by mouth at bedtime as needed for muscle spasms. 30 tablet 09/22/19 25 Active buPROPion (WELLBUTRIN) 100 mg tablet Take 100 mg by mouth daily. 2024 Discontinued(R eorder) ferrous sulfate 325 mg (65 mg iron) EC tablet Take 1 tablet (325 mg total) by mouth 1 (one) time each day with breakfast. Do not crush, chew, or split. 90 each 1 05/10/20 24 2024 Discontinued levothyroxine (SYNTHROID, LEVOTHROID) 112 mcg tablet TAKE 1 TABLET BY MOUTH ONCE DAILY IN THE MORNING BEFORE BREAKFAST 90 tablet 1 06/01/20 24 2024 Discontinued(R eorder) lisinopriL (PRINIVIL,ZESTRIL ) 2.5 mg tablet TAKE 1 TABLET BY MOUTH AT BEDTIME 90 tablet 07/04/19 25 2024 Discontinued(R eorder) glipiZIDE (GLUCOTROL) 5 mg tablet TAKE 1 TABLET BY MOUTH TWICE DAILY BEFORE MEALS 180 tablet 07/04/19 25 2024 Discontinued(R eorder) metFORMIN (GLUCOPHAGE) 1,000 mg tablet TAKE 1 TABLET BY MOUTH TWICE DAILY WITH MEALS 180 tablet 07/04/19 25 2024 Discontinued(R eorder) atorvastatin (LIPITOR) 80 mg tablet TAKE 1 TABLET BY MOUTH AT BEDTIME 90 tablet 07/04/19 25 2024 Discontinued(R eorder) pantoprazole (PROTONIX) 20 mg EC tablet TAKE 1 TABLET BY MOUTH ONCE DAILY IN THE MORNING BEFORE BREAKFAST 90 tablet 1 07/09/19 25 2024 Discontinued(R eorder) methocarbamoL (ROBAXIN) 500 mg tablet Take 1 tablet (500 mg total) by mouth 3 (three) times a day. 270 tablet 09/22/19 25 2024 Discontinued cyclobenzaprine (FLEXERIL) 10 mg tabletIndications :Acute upper back pain Take 1 tablet (10 mg total) by mouth 3 (three) times a day if needed for muscle spasms. 30 tablet 09/22/19 25 2024 Discontinued Active Problems Problem Noted Date Diagnosed Date Iron deficiency 05/10/2024 Chronic constipation 05/04/2024 Gastroesophageal reflux disease without esophagi tis 05/04/2024 Hyperlipidemia 05/20/2022 Essential hypertension 10/06/2018 Severe episode of recurrent major depressive disorder, without psychotic features 10/06/2018 Controlled type 2 diabetes with neuropathy 03/02 Overview (04/26/2024): 09/26/2020 s/p EMG sensorimotor distal peripheral neuropathy consistent with chronic diabetic neuropathy Hypothyroidism 07/04/2017 Resolved Problems Problem Noted Date Diagnosed Date Resolved Date Type 2 diabetes with nephropathy 08/28/2020 05/04/2024 Encounters Date Type Department Care Team Description 09/21/2024 9:01 AM EDT - 09/21/2024 11:59 PM EDT Hospital Encounter [facility] [address] [phone] Acute upper back pain Discharge Disposition: Home or Self Care 09/21/2024 8:30 AM EDT Office Visit Adult [address] [phone] Lasha Campoverde MD Acute upper back pain (Primary Dx); Controlled type 2 diabetes with neuropathy (CMS/HCC); Essential hypertension; Other hyperlipidemia; Hypothyroidism, unspecified type; Severe episode of recurrent major depressive disorder, without psychotic features (CMS/HCC); Chronic constipation 09/19/[address] [phone] Lasha Campoverde MD Back Pain 08/22/2024 10:00 AM EST Office Visit Orthopedic Surgery - [address] [phone] Kyle Anglin DPVishnu Diabetic mononeuropathy simplex (CMS/HCC) (Primary Dx); Hammer toe of left foot; Corns and callosities 08/06/2024 11:15 AM EST Office Visit Adult [address] [phone] Lasha Campoverde MD Chronic constipation (Primary Dx); Controlled type 2 diabetes with neuropathy (CMS/HCC); Other hyperlipidemia; Diabetic polyneuropathy associated with type 2 diabetes mellitus (CMS/HCC); Hypothyroidism, unspecified type; Severe episode of recurrent major depressive disorder, without psychotic features (CMS/HCC) from Last 3 Months Immunizations Name Administration Dates Next Due Influenza Quadravalent, MDCK , 0.5ml, preservative free (Flucelvax) 6mo and older 05/18/2022,07/01/2021 Influenza Quadravalent, MDCK , 0.5ml, with preservative (Flucelvax) 6mo and older 03/26/2018 Pfizer SARS-CoV-2 COVID-19, mRNA, LNP-S, preservative free 07/10/2021,10/02/2020,09/11/2020 Pneumococcal conjugate 13 va lent (Prevnar 13, PCV13) 2mo and older 05/30/2020 Tdap Tetanus diptheria acell ular pertussis (Boostrix; Adacel) 7yo and older 05/30/2020 Surgical History Surgery Date Site/Laterality Comments LITHOTRIPSY PROCEDURE: HISTORICAL LITHOTRIPSY Medical History Medical History Date Comments Type 2 diabetes mellitus DX:Type 2 diabetes mellitus (HCC) High cholesterol DX:High cholest arabella History of nephrolithiasis DX:Co story of nephrolithiasis; COMMENT: [facility] uro History of tobacco abuse DX:Hist ory of tobacco abuse Microscopic hematuria DX:Microsc opic hematuria Uncontrolled type 2 diabetes mellitus with diabetic neuropathy, without long-term current use of insulin 03/02/2018 DX:Uncontrolled type 2 diabetes mellitus with diabetic neuropathy, without long-term current use of insulin Essential hypertension 10/06/2018 DX:Essent ial hypertension History of suicidal ideation 10/06/2018 DX: History of suicidal ideation; COMMENT: Inpatient psych 08/2018 Type 2 diabetes with nephrop athy (CMS/HCC) 08/28/2020 Family History Medical History Relation Name Comments Coronary artery disease Brother Coronary artery disease Father Colon cancer Mother Prostate cancer Paternal Grandfather Relation Name Status Comments Brother Father Mother Paternal Grandfather Social History Tobacco Use Types Packs/Day Years [...] for your loved ones. For example, child study team director or elderly care for an older adult? [...] on file Sexual Orientation Not on file Obstetrics History Last Filed Vital Signs Vital Sign Reading Time Taken Comments Blood Pressure 136/75 09/21/2024 8:01 AM EDT Pulse 75 09/21/2024 8:01 AM EDT Temperature 36.3 ??C (97.4 ??F) 09/21/2024 8:01 AM ED T Respiratory Rate 14 09/21/2024 8:01 AM EDT Oxygen Saturation 98% 05/04/2024 1:03 PM EST Inhaled Oxygen Concentration - - Weight 68.6 kg (151 lb 3.2 oz) 09/21/2024 8:01 A M EDT Height 170.2 cm (5' 7 ) 09/21/2024 8:01 AM EDT Body Mass Index 23.68 09/21/2024 8:01 AM EDT Plan of Treatment Upcoming Encounters Date Type Department Care Team (Late st Contact Info) Description 12/04/2024 11:00 AM EDT Office Visit Adult Medicine [facility] [address] [place] [phone] Lasha Campoverde MD [address] [place] [address] 02/21/2025 10:00 AM EDT Office Visit Orthopedic Surgery - [place] [address] [phone] Kyle Anglin, DPM [address] [phone] Health Maintenance Due Date Last Done Comments Hepatitis B Vaccines (1 of 3 - 19+ 3-dose series) 10/10/1990 Zoster Vaccines (1 of 2) 10/10/2021 COVID-19 Vaccine ( - 2023- season) 2024 07/10/2021, 10/02/2020, 09/11/2020 Diabetes: Annual Retina Eye Exam 11/30/2024 12/01/2023 Depression Screening 01/18/2025 01/19/2024 Influenza Vaccine (Season Ended) 2025 05/18/2022, 07/01/2021, 03/26/2018, Additional history exists Diabetes: Annual Foot Exam 02/22/2025 02/23/2024 Diabetes: Blood Sugar Control Test (HGBA1C) 03/08/2025 09/05/2024, 05/08/2024, 01/20/2024, Additional history exists Pneumococcal Vaccine: 50+ Years (3 of 3 - PCV20 or PCV21) 05/30/2025 05/30/2020, 03/13/2009 Pneumococcal Vaccine: Pediatrics (0 to 5 Years) and At-Risk Patients (6 to 64 Years) (3 of 3 - PCV20 or PCV21) 05/30/2025 05/30/2020, 03/13/2009 Social Influencers of Health Screening 08/06/2025 08/06/2024 Diabetes: Annual Urine Albumin-Creatinine Ratio (uACR) 09/05/2025 09/05/2024, 05/08/2024, 01/20/2024 Diabetes: Annual GFR (Glomerular Filtration Rate) 09/05/2025 09/05/2024, 05/08/2024, 01/20/2024, Additional history exists Hypertension/CHF/CAD Annual BMP Blood Test 09/05/2025 09/05/2024, 05/08/2024, 01/20/2024, Additional history exists Cholesterol Screening (Lipid Panel) 09/05/2029 09/05/2024, 05/08/2024, 01/20/2024, Additional history exists DTaP,Tdap,and Td Vaccines (3 - Td or Tdap) 05/30/2030 05/30/2020, 10/31/2009 Colorectal Cancer Screening: Colonoscopy 03/09/2033 03/09/2023 HIV Screening Completed 05/08/2024 Hepatitis C Screening Completed 06/15/2024, 022 HIB Vaccines Aged Out No longer eligi ble based on patient's age to complete this topic HPV Vaccines Aged Out No longer eligi ble based on patient's age to complete this topic Hepatitis A Vaccines Aged Out No long er eligible based on patient's age to complete this topic IPV Vaccines Aged Out No longer eligi ble based on patient's age to complete this topic MMR Vaccines Aged Out No longer eligi ble based on patient's age to complete this topic Medicare Annual Wellness Visit Discontinued Meningococcal ACWY Vaccine Aged Out N o longer eligible based on patient's age to complete this topic Meningococcal B Vacine Aged Out No lo nger eligible based on patient's age to complete this topic RSV Immunization Patients Under 20 months Aged Out No longer eligible based on patient's age to complete this topic Varicella Vaccines Aged Out No longer eligible based on patient's age to complete this topic Procedures Procedure Name Priority Date/Time Associated Diagnosis Comments XR THORACIC SPINE 2 VIEWS Routine 09/21/2024 9:10 AM EDT Acute upper back pain ACE URINE CULTURE TUBE Routine 09/05/2024 10:47 AM EDT Controlled type 2 diabetes with neuropathy (CMS/HCC) Diabetic polyneuropathy associated with type 2 diabetes mellitus (CMS/HCC) URINALYSIS WITH REFLEX MICROSCOPIC AND CULTURE Routine 09/05/2024 10:47 AM EDT Controlled type 2 diabetes with neuropathy (CMS/HCC) Diabetic polyneuropathy associated with type 2 diabetes mellitus (CMS/HCC) CBC WITH AUTO DIFFERENTIAL Routine 09/05/2024 10:47 AM EDT Chronic constipation Controlled type 2 diabetes with neuropathy (CMS/HCC) URINALYSIS WITH REFLEX MICROSCOPIC AND CULTURE Routine 09/05/2024 10:47 AM EDT Controlled type 2 diabetes with neuropathy (CMS/HCC) Diabetic polyneuropathy associated with type 2 diabetes mellitus (CMS/HCC) HEMOGLOBIN A1C Routine 09/05/2024 10:47 AM EDT Controlled type 2 diabetes with neuropathy (CMS/HCC) Diabetic polyneuropathy associated with type 2 diabetes mellitus (CMS/HCC) COMPREHENSIVE METABOLIC PANEL Routine 09/05/2024 10:47 AM EDT Controlled type 2 diabetes with neuropathy (CMS/HCC) Diabetic polyneuropathy associated with type 2 diabetes mellitus (CMS/HCC) MICROALBUMIN CREATININE URINE RATIO Routine 09/05/2024 10:47 AM EDT Controlled type 2 diabetes with neuropathy (CMS/HCC) Diabetic polyneuropathy associated with type 2 diabetes mellitus (CMS/HCC) LIPID PANEL WITH REFLEX TO DIRECT LDL Routine 09/05/2024 10:47 AM EDT Controlled type 2 diabetes with neuropathy (CMS/HCC) Other hyperlipidemia Diabetic polyneuropathy associated with type 2 diabetes mellitus (CMS/HCC) CBC AND DIFFERENTIAL Routine 09/05/2024 10:47 AM EDT Chronic constipation Controlled type 2 diabetes with neuropathy (CMS/HCC) HEPATITIS PANEL, ACUTE WITH REFLEX TO CONFIRMATION Routine 06/15/2024 10:40 AM EST Transaminitis HIV 1, 2 ANTIBODY, P24 ANTIGEN WITH REFLEX TO DIFFERENTIATION Routine 05/08/2024 11:12 AM EST Encounter for screening for HIV DIABETES FOOT EXAM Routine 02/23/2024 DEPRESSION SCREENING Routine 01/19/2024 DIABETES EYE EXAM Routine 12/01/2023 COLONOSCOPY Routine 03/09/2023 from Last 3 Months or Most Recently Relevant to Health Maintenance Results * XR Thoracic Spine 2 Views [...] Signed Date: 09/21/2024 09:22 ET Workstation ID: [id number] Transcribed By: Self Edit Transcribed Date: 09/21/2024 [...] Signed Date: 09/21/2024 09:22 ET Workstation ID: [id number] Transcribed By: Self Edit Transcribed Date: 09/21/2024 09:20 ET us Lasha Campoverde MD IMG XR PROCEDURES Estela l Result * Urinalysis with reflex microscopic and culture (09/05/2024 10:47 AM EDT) Specific [place] Urine 1.010 1.003 - 1.030 LAB URINALYSIS - AUTOMATED METHOD 09/05/2024 12:[address] [facility] pH, Urine 7.5 5.0 - 8.0 pH LAB URINALYSIS - AUTOMATED METHOD 09/05/2024 12:[address] [facility] Leukocytes, Urine Negative Negative LAB URINALYSIS - AUTOMATED METHOD 09/05/2024 12:[address] [facility] Nitrite, Urine Negative Negative LAB URINALYSIS - AUTOMATED METHOD 09/05/2024 12:[address] [facility] Protein, Urine Negative <=Trace mg/dL LAB URINALYSIS - AUTOMATED METHOD 09/05/2024 12:[address] [facility] Glucose, Urine Negative Negative mg/dL LAB URINALYSIS - AUTOMATED METHOD 09/05/2024 12:[address] [facility] Ketones, Urine Negative Negative mg/dL LAB URINALYSIS - AUTOMATED METHOD 09/05/2024 12:16 PM EDT [facility] Urobilinogen, Urine 1.0 0.2 - 1.0 mg/dL LAB URINALYSIS - AUTOMATED METHOD 09/05/2024 12:16 PM EDT [facility] Bilirubin, Urine Negative Negative LAB URINALYSIS - AUTOMATED METHOD 09/05/2024 12:16 PM EDT [facility] Blood, Urine Negative Negative LAB URINALYSIS - AUTOMATED METHOD 09/05/2024 12:16 PM EDT [facility] Urine Urine specimen obtained by clean catch procedure / Unknown Non-blood Collection / Unknown 09/05/2024 10:47 AM EDT 09/05/2024 10:47 AM EDT Lasha Campoverde MD LAB URINE ORDERABLES F inal Result Performing Organization Address City/[facility]/ZIP Co de Phone Number [facility] [address] [place] [address], [place] [phone] * Ace urine culture tube (09/05/2024 10:47 AM EDT) Extra Tube Hold for add-ons. 09/05/2024 12:02 PM EDT [facility] Comment:Auto resulted. Urine Urine specimen obtained by clean catch procedure / Unknown Non-blood Collection / Unknown 09/05/2024 10:47 AM EDT 09/05/2024 10:47 AM EDT Lasha Campoverde MD LAB URINE ORDERABLES F inal Result Performing Organization Address City/[facility]/ZIP Co de Phone Number [facility] [address] [place] [address], [place] [phone] * Lipid panel with reflex to direct LDL (09/05/2024 10:47 AM EDT) Cholesterol 113 0 - 200 mg/dL LAB CHEMISTRY METHOD 09/05/2024 1:06 PM EDT [facility] Triglycerides 69 0 - 150 mg/dL LAB CHEMISTRY METHOD 09/05/2024 1:06 PM EDT [facility] HDL 53 >=40 mg/dL LAB CHEMISTRY METHOD 09/05/2024 1:06 PM EDT [facility] LDL Calculated 46 0 - 100 mg/dL LAB CHEMISTRY METHOD 09/05/2024 1:06 PM EDT [facility] VLDL Cholesterol Carlos 13.8 mg/dL LAB CHEMISTRY METHOD 09/05/2024 1:06 PM EDT [facility] Non HDL Chol. (LDL+VLDL) 60 <145 mg/dL LAB CHEMISTRY METHOD 09/05/2024 1:06 PM EDT [facility] Chol/HDL Ratio 2.1 0.0 - 4.4 LAB CHEMISTRY METHOD 09/05/2024 1:06 PM EDT [facility] Blood Venous blood specimen / Unknown Venipuncture / Unknown 09/05/2024 10:47 AM EDT 09/05/2024 10:47 AM EDT us Lasha Campoverde MD LAB BLOOD ORDERABLES F inal Result [facility] [address] [place] [address], * CBC auto differential (09/05/2024 10:47 AM EDT) WBC 7.7 4.8 - 10.8 K/mcL LAB HEMETOLOGY METHOD 09/05/2024 12:14 PM EDT [facility] RBC 5.10 4.50 - 5.50 M/mcL LAB HEMETOLOGY METHOD 09/05/2024 12:14 PM EDT [facility] Hemoglobin 15.5 13.5 - 17.5 g/dL LAB HEMETOLOGY METHOD 09/05/2024 12:14 PM EDT [facility] Hematocrit 46.3 42.0 - 54.0 % LAB [facility]OLOGY [facility] MCV 90.1 79.0 - 98.0 FL LAB HEMETOLOGY METHOD 09/05/2024 12:[address] [facility] MCH 30.2 27.0 - 32.0 pcg LAB HEMETOLOGY METHOD [facility]/05[facility]24 [facility] MCHC 33.5 32.0 - 37.0 g/dL LAB HEMETOLOGY METHOD 09/05/2024 12:[address] [facility] RDW 13.3 11.0 - 15.0 % LAB HEMETOLOGY METHOD 09/05/2024 12:[address] [facility] Platelets 296 130 - 400 K/mcL LAB HEMETOLOGY METHOD 09/05/2024 12:[address] [facility] MPV 10.6 7.0 - 11.0 FL LAB HEMETOLOGY METHOD 09/05/2024 12:[address] [facility] NRBC 0.0 <1.0 % LAB HEMETOLOGY METHOD 09/05/2024 12:[address] [facility] NRBC Absolute 0.00 <0.10 K/mcL LAB HEMETOLOGY METHOD 09/05/2024 12[facility] Neutrophils Relative 64.8 % LAB HEMETOLOGY METHOD 09/05/2024 12[facility] Lymphocytes Relative 25.4 % LAB HEMETOLOGY METHOD 09/05/2024 12:[address] [facility] Monocytes Relative 7.5 % LAB HEMETOLOGY METHOD 09/05/2024 12:[address] [facility] Eosinophils Relative 1.3 % LAB HEMETOLOGY METHOD 09/05/2024 12:14 PM EDT [facility] Basophils Relative 0.9 % LAB HEMETOLOGY METHOD 09/05/2024 12:14 PM EDT [facility] Immature Granulocytes Relative 0.1 % LAB HEMETOLOGY METHOD 09/05/2024 12:14 PM EDT [facility] Neutrophils Absolute 4.98 1.50 - 7.00 K/mcL LAB HEMETOLOGY METHOD 09/05/2024 12:14 PM EDT [facility] Lymphocytes Absolute 1.95 1.00 - 5.00 K/mcL LAB HEMETOLOGY METHOD 09/05/2024 12:14 PM EDT [facility] Monocytes Absolute 0.58 0.20 - 1.00 K/mcL LAB HEMETOLOGY METHOD 09/05/2024 12:14 PM EDT [facility] Eosinophils Absolute 0.10 0.00 - 0.50 K/mcL LAB HEMETOLOGY METHOD 09/05/2024 12:14 PM EDT [facility] Basophils Absolute 0.07 0.00 - 0.20 K/mcL LAB HEMETOLOGY METHOD 09/05/2024 12:14 PM EDT [facility] Immature Granulocytes Absolute 0.01 0.00 - 0.03 K/mcL LAB HEMETOLOGY METHOD 09/05/2024 12:14 PM EDT [facility] Blood Venous blood specimen / Unknown Venipuncture / Unknown 09/05/2024 10:47 AM EDT 09/05/2024 10:47 AM EDT us Lasha Campoverde MD LAB BLOOD ORDERABLES F inal Result [facility] [address] [place] [address], * Microalbumin creatinine urine ratio (09/05/2024 10:47 AM EDT) Pathologist [facility] Creatinine, Urine 35.0 mg/dL LAB CHEMISTRY METHOD 09/05/2024 8:16 PM EDT [facility] Microalb, Ur 5.5 0.0 - 29.0 mg/L LAB CHEMISTRY METHOD 09/05/2024 8:16 PM EDT [facility] Microalb/Creat Ratio 16 <30 mg/g creat LAB CHEMISTRY METHOD 09/05/2024 8:16 PM EDT [facility] Urine Urine specimen obtained by clean catch procedure / Unknown Non-blood Collection / Unknown 09/05/2024 10:47 AM EDT 09/05/2024 10:47 AM EDT us Lasha Campoverde MD LAB URINE ORDERABLES F inal Result Performing Organization Address City/[facility]/ZIP Co de Phone Number [facility] [address] [place] [address], [place] [phone] * (ABNORMAL) Hemoglobin A1c (09/05/2024 10:47 AM EDT) [facility] Hemoglobin A1C 7.1(H) <6.5 % LAB CHEMISTRY METHOD 09/05/2024 1:40 PM EDT [facility] Mean Bld Glu Estim. 157 mg/dL LAB CHEMISTRY METHOD 09/05/2024 1:40 PM EDT [facility] Blood Venous blood specimen / Unknown Venipuncture / Unknown 09/05/2024 10:47 AM EDT 09/05/2024 10:47 AM EDT us Lasha Campoverde MD LAB BLOOD ORDERABLES F inal Result Performing Organization Address City/[facility]/ZIP Co de Phone Number [facility] [address] [place] [address], [place] [phone] * (ABNORMAL) Comprehensive metabolic panel (09/05/2024 10:47 AM EDT) Sodium 138 133 - 145 mmol/L LAB CHEMISTRY METHOD 09/05/2024 1:[address] [facility] Potassium 4.1 3.5 - 5.5 mmol/L LAB CHEMISTRY METHOD 09/05/2024 1:[address] [facility] Chloride 103 96 - 110 mmol/L LAB CHEMISTRY METHOD 09/05/2024 1:[address] [facility] CO2 27 21 - 32 mmol/L LAB CHEMISTRY METHOD 09/05/2024 1:[address] [facility] Anion Gap 8 3 - 11 LAB CHEMISTRY METHOD 09/05/2024 1:[address] [facility] Glucose 154(H) 70 - 100 mg/dL LAB CHEMISTRY METHOD 09/05/2024 1:[address] [facility] BUN 13 5 - 25 mg/dL LAB CHEMISTRY METHOD 09/05/2024 1:[address] [facility] Creatinine 0.87 0.70 - 1.30 mg/dL LAB CHEMISTRY METHOD 09/05/2024 1:[address] [facility] eGFR 104 >=60 mL/min/1. 73m2 LAB CHEMISTRY METHOD 09/05/2024 1:[address] [facility] Comment:Calculation based on the??Chronic Kidney Disease Epidemiology Collaboration (CKD-EPI) equation refit??without adjustment for race. BUN/Creatinine Ratio 14.9 LAB CHEMISTRY METHOD 09/05/2024 1:[address] [facility] Calcium 9.2 8.5 - 10.5 mg/dL LAB CHEMISTRY METHOD 09/05/2024 1:[address] [facility] AST (SGOT) 32 10 - 42 unit/L LAB CHEMISTRY METHOD 09/05/2024 1:[address] [facility] ALT (SGPT) 51 10 - 60 unit/L LAB CHEMISTRY METHOD 09/05/2024 1:20 PM EDT [facility] Alkaline Phosphatase 121 42 - 121 unit/L LAB CHEMISTRY METHOD 09/05/2024 1:20 PM EDT [facility] Total Protein 7.4 6.0 - 8.0 g/dL LAB CHEMISTRY METHOD 09/05/2024 1:20 PM EDT [facility] Albumin 4.1 3.2 - 5.0 g/dL LAB CHEMISTRY METHOD 09/05/2024 1:20 PM EDT [facility] Total Bilirubin 0.6 0.0 - 1.4 mg/dL LAB CHEMISTRY METHOD 09/05/2024 1:20 PM EDT [facility] Blood Venous blood specimen / Unknown Venipuncture / Unknown 09/05/2024 10:47 AM EDT 09/05/2024 10:47 AM EDT us Lasha Campoverde MD LAB BLOOD ORDERABLES F inal Result [facility] [address] [place] [address], * Hepatitis panel, acute with reflex to confirmation (06/15/2024 10:40 AM EST) Hepatitis B Surface Ag Negative Negative LAB CHEMISTRY METHOD 06/15/2024 3:08 PM EST [facility] Hepatitis A Antibody IgM Negative Negative LAB CHEMISTRY METHOD 06/15/2024 3:08 PM EST [facility] Hep B Core IgM Negative Negative LAB CHEMISTRY METHOD 06/15/2024 3:08 PM EST [facility] Hepatitis C Antibody Negative Negative LAB CHEMISTRY METHOD 06/15/2024 3:08 PM EST [facility] Blood Venous blood specimen / Unknown Venipuncture / Unknown 06/15/2024 10:40 AM EST 06/15/2024 10:40 AM EST us Lasha Campoverde MD LAB BLOOD ORDERABLES F inal Result Performing Organization Address [facility]/ZIP Co de Phone Number [facility] [address] [place] [address], [place] [phone] * HIV 1,2 antibody, p24 antigen with reflex to differentiation (05/08/2024 11:12 AM EST) [facility] HIV Combo AB/AG Negative Negative LAB CHEMISTRY METHOD 05/08/2024 3:31 PM EST [facility] Blood Venous blood specimen / Unknown Venipuncture / Unknown 05/08/2024 11:12 AM EST 05/08/2024 11:12 AM EST Narrative [facility] - 05/08/2024 3:31 PM EST This assay is a 4th generation assay allowing for earlier detection of HIV infection by detecting the presence of the HIV-1 p24 antigen as well as the traditional antibodies to HIV type 1 (including group O) and type 2. ??Use of a 4th generation assay is the current CDC recommendation for HIV screening. us Lasha Campoverde MD LAB BLOOD ORDERABLES F inal Result Performing Organization Address City/[facility] Co de Phone Number [facility] [address] [place] [address], [place] [phone] * Diabetes Foot Exam (02/23/2024) [facility] Diabetes: Annual Foot Exam Abstracted Historical Provider HEALTH MAINTENANCE Final Result * Depression Screening (01/19/2024) [facility] Depression Screening Abstracted Historical Provider HEALTH MAINTENANCE Final Result * Diabetes Eye Exam (12/01/2023) [facility] Diabetes: Annual Retina Eye Exam Abstracted Historical Provider HEALTH MAINTENANCE Final Result * Colonoscopy (03/09/2023) Colonoscopy No Interpretation , Abstracted Anatomical Region Laterality Modality Other us Historical Provider HEALTH MAINTENANCE Final Result from Last 3 Months or Most Recently Relevant to Health Maintenance Insurance [employer] Member Subscriber Plan / Payer (Ef fective 2022-Present) Name:Ruel Worley Relation to Subscriber:Self Name:Ruel Worley Payer ID:[id number] Group ID:[id number] Type:Not on file Address: [place] [address] [address] [id number] Care Teams Roll Forming Supervisor Relationship Specialty Start Date End Date Lasha Campoverde MD [address] [place] [address] PCP - General 07/02/22
== END 2024-09-24 10:39 | disposition home or self-care (01) ==
LOC: HO.PMC 09:50
PROVIDERS: PCP Podiatrist Foot & Ankle Surgery; Visit Provider Anesthesiology
DX: E11.42 Type 2 diabetes mellitus with diabetic polyneuropathy (principal); M79.671 Pain in right foot; M79.672 Pain in left foot; G89.4 Chronic pain syndrome
CPT/HCPCS: 17999

== ENCOUNTER → 2024-09-24 09:49 | Outpatient (BNVA) | payer OTHER, SELFPAY | PROVIDERS: PCP Podiatrist Foot & Ankle Surgery; Visit Provider Anesthesiology | DX: E11.42 Type 2 diabetes mellitus with diabetic polyneuropathy (principal); M79.671 Pain in right foot; M79.672 Pain in left foot; G89.4 Chronic pain syndrome | CPT/HCPCS: 17999; J7336 ==

== ENCOUNTER 2025-02-20 10:00 | Outpatient (AMB) | payer OTHER, SELFPAY ==
--- NOTE | 2025-02-20 10:04 | MHC.OFFVIS ---
Vital Signs 02/20/25 10:05 Weight 144 lb BP 120/76 Blood Pressure Location Lt brachial Position Sitting Respiration 18 Pulse 59 Pulse Source Pulse Oximeter Pulse Oximetry (%) 100 Oxygen Delivery Method Room Air Intake Visit Reasons: Renetta Offset Machine Operator Required: No Allergies No Known Allergies Allergy (Verified 02/20/25 10:06) HPI Comments Details: Patient presents for 6th application of capsaicin 8% topical patch for diabetic neuropathy in bilateral feet. He he did not make application of EMLA cream. He is ready for application he insists on applying medication without pretreatment with local anesthetic. Spinal cord stimulator Nevro to treat diabetic polyneuropathy was discussed with the patient. Brochure was given to the patient. Mr. Worley is very pleasant 51 years old gentleman who presents in my office with complains on diabetic polyneuropathy. He is suffering from diabetes type 2 for many years. He used to ignore his diabetic medications and his hemoglobin A1c was running very high. Now he is taking his medications regularly and his hemoglobin A1c is 6.9. However the damage to the a peripheral nerves apparently was done. And now he is suffering from severe polyneuropathy of bilateral lower extremities below the level of the knees. He reports that he cannot do activities of daily living and I cannot take care of himself because of this pain. He is on permanent disability. Reports that walking aggravates his pain the most. His pain is all day long with 7/10 range of pain. [facility] Medical History History of suicidal ideation Severe episode of recurrent major depressive disorder Essential hypertension Controlled type 2 diabetes with neuropathy Hypothyroidism Family history of colon cancer History of tobacco use History of nephrolithiasis Review of Systems Const All systems reviewed & are unremarkable except as noted in HPI and below Physical Exam Vital Signs: Last Vital Signs Pulse 59 02/20/25 10:05 Resp 18 02/20/25 10:05 BP 120/76 02/20/25 10:05 Pulse Ox 100 02/20/25 10:05 Oxygen Delivery Method Room Air 02/20/25 10:05 General: Appears afebrile. Alert and oriented. Mood and affect appropriate. Follows and participates in conversation appropriately. Respiratory effort is unlabored. No cough. Able to transition from sit to stand unassisted. Ambulates with bilaterally normal heel strike and toe off. Back/Spine/Pelvis Cervical Spine: cervical ROM normal and No Cervical spine tenderness Thoracic/Lumbar Spine: thoracic and lumbar spine normal to inspection, No Thoracic/lumbar spine scar(s), thoraco-lumbar ROM normal, Lasegue's sign negative, straight leg raise negative bilaterally, No thoracic spinal tenderness and No lumbar spinal tenderness Pelvis: buttock tenderness on the left Sacroiliac joints: bilaterally (Negative Patricks and Pelvic compression.) tender to palpation Extrem Other: There is a decreased sensation over the soles of the feet and toes. Reports numbness, burning, hot, tingling in both feet, worse at night time. No breaks in the skin. No soft tissue swelling or warmth. +2 pedal pulses bilaterally. No scratches, no bruises, no infection detected in the feet. General: Yes capillary refill normal, Yes no clubbing, cyanosis or edema and Yes no calf tenderness Left lower extremity: hip/thigh (Mild pain with FADIR) Details: normal to inspection, tenderness Location: of the hip Location: laterally and over the great trochanter and normal ROM; no swelling, no ecchymosis, no crepitus and no unusual warmth Office Meds capsaicin-skin cleanser 8 % topical kit Performing Provider: Vivek Vera MD Performing Location: [facility] Administered by: Vivek Vera MD on 02/20/25 10:21 Dose Route Admin Location Dispensed Lot Number Expiration Date [facility] Human Resources Analyst 1 ea topical 1 ea [id number] 02/17/26 [employer] Total Dispensed Waste 1 ea 0 % Assessment & Plan Assessment & Plan (1) Diabetic polyneuropathy: Code(s): E11.42 - Type 2 diabetes mellitus with diabetic polyneuropathy Category: Medical (2) Chronic pain syndrome: Code(s): G89.4 - Chronic pain syndrome Category: Medical Plan Ruel is here to receive yet another application of Qutenza. He reports Qutenza helps his diabetic polyneuropathy. Nevro brochure was given to the patient. SCS Nevro was discussed. Orders: Orders AMB Capsaicin Patch - Practice Supplied Today E11.42 - Type 2 diabetes mellitus with diabetic polyneuropathy, G89.4 - Chronic pain syndrome Coding Level of Care Code Est Pt Level 3 (18642) Procedure Only Diagnoses Diabetic polyneuropathy E11.42 Chronic pain syndrome G89.4
[2025-02-20 10:05] VITALS: BP 120/76; PULSE 59; RESP 18; O2SAT 100
--- OUTSIDE RECORDS SUMMARY | 2025-02-20 11:30 | XMS_ITS ---
Author Name [facility] Organization Unknown Care Team Organization Name Specialty Phone Email Start Date End Da te [facility] EARNESTINE SOMERS Primary Care 10/25/2022 02/06/2024 [facility] DAVID TRAN Primary Care 04/27/2022
--- OUTSIDE RECORDS SUMMARY | 2025-02-20 11:30 | XMS_ITS | Clinical Summary ---
Author Organization [facility] [address] [facility] Address [address] [place] [address] [place] [address] Phone Care Team Providers Care User Interface Developer Name Role Phone Lasha Campoverde MD Primary Care Provider Allergies No known active allergies Medications FREESTYLE LANCETS MISC Use twice daily with device 8 Active blood sugar diagnostic (FreeStyle Lite Strips) test strip Use twice daily with device 8 Active diclofenac (VOLTAREN) 1 % topical gel Apply 4 g topically 2 times daily. 3 Active LORazepam (ATIVAN) 1 mg tablet Take 1 Tablet by mouth daily as needed for Anxiety. 2 Active sildenafiL (VIAGRA) 50 mg tablet Take 1 tablet by mouth as needed 30-60 minutes prior to sexual intercourse, maximum 2 tablets daily. 2 Active venlafaxine (EFFEXOR) 75 mg tablet Take 1 Tab by mouth 3 times daily. 0 Active atorvastatin (LIPITOR) 80 mg tablet at bedtime. 90 tablet 1 5 Active buPROPion (WELLBUTRIN) 100 mg tablet Take 100 mg by mouth daily. 90 tablet 1 5 Active levothyroxine (SYNTHROID, LEVOTHROID) 112 mcg tablet Take 1 tablet (112 mcg total) by mouth 1 (one) time each day before breakfast. 90 tablet 1 5 Active lisinopriL (PRINIVIL,ZESTR IL) 2.5 mg tablet at bedtime. 90 tablet 1 5 Active cyclobenzaprine (FLEXERIL) 10 mg tabletIndicatio ns:Acute upper back pain Take 1 tablet (10 mg total) by mouth at bedtime as needed for muscle spasms. 30 tablet 5 Active gabapentin (NEURONTIN) 600 mg tablet Take 1 tablet (600 mg total) by mouth 3 (three) times a day. 270 each 1 5 Active glipiZIDE (GLUCOTROL) 5 mg tablet Take 1 tablet (5 mg total) by mouth 2 (two) times a day before meals. 180 tablet 1 5 Active metFORMIN (GLUCOPHAGE) 1,000 mg tablet Take 1 tablet (1,000 mg total) by mouth 2 (two) times a day with meals. 180 tablet 3 5 Active linaCLOtide (Linzess) 145 mcg capsule Take 1 capsule (145 mcg total) by mouth 1 (one) time each day. 90 each 1 5 Active aspirin 81 mg EC tablet Take 1 tablet (81 mg total) by mouth 1 (one) time each day. 4 Active busPIRone (BUSPAR) 30 mg tablet Take 1 tablet (30 mg total) by mouth 2 (two) times a day. 5 Active DULoxetine (CYMBALTA) [address] capsule Take 1 capsule (30 mg total) by mouth 1 (one) time each day. 5 Active tamsulosin (FLOMAX) 0.4 mg 24 hr capsule Take 1 capsule (0.4 mg total) by mouth 1 (one) time each day. 4 Active loratadine (CLARITIN) 10 mg tablet Take 1 tablet (10 mg total) by mouth 1 (one) time each day. 90 tablet 5 Active lidocaine (Salonpas, lidocaine,) 4 % patch Apply 1 patch topically 1 (one) time each day. Take it off after 12 hours and apply the next patch after 12 hours break. 30 patch 3 5 Active pantoprazole (PROTONIX) 20 mg EC tablet Take 1 tablet (20 mg total) by mouth 1 (one) time each day before breakfast. 90 tablet 1 5 Active pantoprazole (PROTONIX) 20 mg EC tablet Take 1 tablet (20 mg total) by mouth 1 (one) time each day before breakfast. 90 tablet 1 5 01/29/20 25 Discontinu ed(Reorder ) lidocaine (Salonpas, lidocaine,) 4 % patch Apply 1 patch topically 1 (one) time each day. Take it off after 12 hours and apply the next patch after 12 hours break. 30 patch 5 01/29/20 25 Discontinu ed(Reorder ) loratadine (CLARITIN) 10 mg tablet Take 1 tablet by mouth once daily 90 tablet 5 01/26/20 25 Discontinu ed(Reorder ) Active Problems Problem Noted Date Diagnosed Date Calculus of kidney 01/28/2025 Depressive disorder 01/28/2025 Indigestion 01/28/2025 Tobacco dependence syndrome 01/28/2025 Iron deficiency 05/10/2024 Chronic constipation 05/04/2024 Gastroesophageal reflux disease without esophagi tis 05/04/2024 Hyperlipidemia 05/20/2022 Essential hypertension 10/06/2018 Severe episode of recurrent major depressive disorder, without psychotic features ([facility] V24, [facility] V28) 10/06/2018 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 ([facility] V24, [facility] V28) 03/02/2018 Overview (04/26/2024): 09/26/2020 s/p EMG sensorimotor distal peripheral neuropathy consistent with chronic diabetic neuropathy Hypothyroidism 07/04/2017 Erectile dysfunction 09/20/2012 Resolved Problems Problem Noted Date Diagnosed Date Resolved Date Type 2 diabetes with nephrop athy ([facility] V24, [facility] V28) 08/28/2020 05/04/2024 Encounters Date Type Department Care Team Description 01/28/2025 10:00 AM EDT Office Visit Adult Medicine [address] [phone] Lasha Campoverde MD Controlled type 2 diabetes with neuropathy ([facility] V24, [facility] V28) (Primary Dx); Encounter for completion of form with patient 12/31/2024 9:00 AM EDT Consult Orthopedics [address] [phone] Nolberto Fitch PA Chronic pain of right knee 12/31/2024 8:21 AM EDT - 12/31/2024 11:59 PM EDT Hospital Encounter [address] [phone] Right knee pain, unspecified chronicity Discharge Disposition: Home or Self Care 12/31/2024 Telephone Adult Medicine [address] [phone] Lasha Campoverde MD 12/13/2024 Telephone Adult Medicine [address] [phone] Lasha Campoverde MD 12/04/2024 11:00 AM EDT Office Visit Adult [address] [phone] Lasha Campoverde MD Controlled type 2 diabetes with neuropathy (CMS/HCC V24, CMS/HCC V28) (Primary Dx); Essential hypertension; Severe episode of recurrent major depressive disorder, without psychotic features (CMS/HCC V24, CMS/HCC V28); Other hyperlipidemia; Hypothyroidism, unspecified type; Osteoarthritis of right knee, unspecified osteoarthritis type; Chronic constipation; Gastroesophageal reflux disease without esophagitis; Acute upper back pain 12/04/2024 Telephone Adult Medicine [address] [phone] Lasha Campoverde MD from Last 3 Months Immunizations Name Administration Dates Next Due DTaP (Infanrix) 6wks to less than 7yo 10/31/2009 Influenza Quadravalent, MDCK , 0.5ml, preservative free (Flucelvax) 6mo and older 05/18/2022,07/01/2021 Influenza Quadravalent, MDCK , 0.5ml, with preservative (Flucelvax) 6mo and older 03/26/2018 Influenza Whole 05/10/2008 Influenza trivalent, with pr eservative (Fluzone; Afluria) 6mo and older 05/24/2014,07/10/2013,03/13/2009 Pfizer SARS-CoV-2 COVID-19, mRNA, LNP-S, preservative free 07/10/2021,10/02/2020,09/11/2020 Pneumococcal conjugate 13 va lent (Prevnar 13, PCV13) 2mo and older 05/30/2020 Pneumococcal polysaccharide 23 valent (Pneumovax 23) 2yo and older 03/13/2009 Tdap Tetanus diptheria acell ular pertussis (Boostrix; Adacel) 7yo and older 05/30/2020 Surgical History Surgery Date Site/Laterality Comments LITHOTRIPSY PROCEDURE: HISTORICAL LITHOTRIPSY Medical History Medical History Date Comments Type 2 diabetes mellitus ([facility] V24, [facility] V28) DX:Type 2 diabetes mellitus ([facility]) High cholesterol DX:High cholest arabella History of nephrolithiasis DX:Co story of nephrolithiasis; COMMENT: [facility] History of tobacco abuse DX:Hist ory of [...] 08/2018 Type 2 diabetes with nephrop athy ([facility] V24, [facility] V28) 08/28/2020 Family History Medical History Relation Name [...] care for your loved ones. For example, childcare attendant or elderly care for an older [...] Sign Reading Time Taken Comments Blood Pressure 140/63 01/28/2025 9:40 AM EDT Pulse 72 01/28/2025 9:40 AM EDT Temperature 37.1 C (98.8 F) 01/28/2025 9:40 AM EDT Respiratory Rate 15 01/28/2025 9:40 AM EDT Oxygen Saturation 95% 01/28/2025 9:40 AM EDT Inhaled Oxygen Concentration - - Weight 66.6 kg (146 lb 12.8 oz) 01/28/2025 9:40 AM EDT Height 170.2 cm (5' 7 ) 01/28/2025 9:40 AM EDT Body Mass Index 22.99 01/28/2025 9:40 AM EDT Plan of Treatment Upcoming Encounters Date Type Department Care Team (Late st Contact Info) Description 02/21/2025 10:00 AM EDT Office Visit Orthopedic Surgery [place] [id number] [phone] Kyle Anglin, DPM [address] [phone] 03/01/2025 9:45 AM EDT Office Visit Orthopedics [address] [phone] Nolberto Fitch PA [address] [place] [phone] 04/05/2025 9:45 AM EDT Office Visit Adult Medicine East [address] [phone] Lasha Campoverde MD [address] [place] [phone] Health Maintenance Due Date Last Done Comments Hepatitis B Vaccines (1 of 3 - 19+ 3-dose series) 10/10/1990 Zoster Vaccines (1 of 2) 10/10/2021 COVID-19 Vaccine ( season) 2025 07/10/2021, 10/02/2020, 09/11/2020 Influenza Vaccine (#1) 2025 2, 07/01/2021, 03/26/2018, Additional history exists Diabetes: Annual Foot Exam 02/22/2025 02/23/2024 Pneumococcal Vaccine: 50+ Years (3 of 3 - PCV20 or PCV21) 05/30/2025 05/30/2020, 03/13/2009 Diabetes: Blood Sugar Control Test (HGBA1C) 06/06/2025 12/05/2024, 09/05/2024, 05/08/2024, Additional history exists Social Influencers of Health Screening 08/06/2025 08/06/2024 Diabetes: Annual Urine Albumin-Creatinine Ratio (uACR) 09/05/2025 09/05/2024, 05/08/2024, 01/20/2024 Diabetes: Annual GFR (Glomerular Filtration Rate) 12/05/2025 12/05/2024, 09/05/2024, 05/08/2024, Additional history exists Hypertension/CHF/CAD Annual BMP Blood Test 12/05/2025 12/05/2024, 09/05/2024, 05/08/2024, Additional history exists Diabetes: Annual Retina Eye Exam 12/13/2025 12/13/2024, 12/01/2023 Cholesterol Screening (Lipid Panel) 09/05/2029 09/05/2024, 05/08/2024, 01/20/2024, Additional history exists DTaP,Tdap,and Td Vaccines (3 - Td or Tdap) 05/30/2030 05/30/2020, 10/31/2009 Colorectal Cancer Screening: Colonoscopy 03/09/2033 03/09/2023 HIV Screening Completed 05/08/2024 Hepatitis C Screening Completed 06/15/2024, 022 Depression Screening Completed 12/03/2024, 01/19/20 HIB Vaccines Aged Out No longer eligi [...] age to complete this topic Meningococcal B Vaccine Aged Out No l onger eligible based on patient's age to complete this topic RSV Immunization Patients Under 20 months Aged Out No longer eligible based on patient's age to complete this topic Varicella Vaccines Aged Out No longer eligible based on patient's age to complete this topic Procedures Procedure Name Priority Date/Time Associated Diagnosis Comments IL ARTHROCENTESIS/ASPIRAT ION/INJECTION MAJOR JOINT/BURSA W/O U/S GUIDANCE Routine 12/31/2024 9:00 AM EDT Chronic pain of right knee XR KNEE 4+ VIEWS RIGHT Routine 8:51 AM EDT Right knee pain, unspecified chronicity EXTERNAL DIABETIC RETINA EYE EXAM 12/13/2024 COMPREHENSIVE METABOLIC PANEL Routine 12/05/2024 10:28 AM EDT Controlled type 2 diabetes with neuropathy (CMS/HCC V24, CMS/HCC V28) HEMOGLOBIN A1C Routine 12/05/2024 10:28 AM EDT Controlled type 2 diabetes with neuropathy (CMS/HCC V24, CMS/HCC V28) MICROALBUMIN CREATININE URINE RATIO Routine 09/05/2024 10:47 AM EDT Controlled type 2 diabetes with neuropathy (CMS/HCC V24, CMS/HCC V28) Diabetic polyneuropathy associated with type 2 diabetes mellitus (CMS/HCC V24, CMS/HCC V28) LIPID PANEL WITH REFLEX TO DIRECT LDL Routine 09/05/2024 10:47 AM EDT Controlled type 2 diabetes with neuropathy (CMS/HCC V24, CMS/HCC V28) Other hyperlipidemia Diabetic polyneuropathy associated with type 2 diabetes mellitus (CMS/HCC V24, CMS/HCC V28) HEPATITIS PANEL, ACUTE WITH REFLEX TO CONFIRMATION Routine 06/15/2024 10:40 AM EST Transaminitis HIV 1, 2 ANTIBODY, P24 ANTIGEN WITH REFLEX TO DIFFERENTIATION Routine 05/08/2024 11:12 AM EST Encounter for screening for HIV DIABETES FOOT EXAM Routine 02/23/2024 DEPRESSION SCREENING Routine 01/19/2024 COLONOSCOPY Routine 03/09/2023 from Last 3 Months or Most Recently Relevant to Health Maintenance Results * IL ARTHROCENTESIS/ASPIRATION/INJECTION MAJOR JOINT/BURSA W/O U/S GUIDANCE (12/31/2024 9:00 AM EDT) Nolberto Roman PA - 12/31/2024 9:00 AM EDT [place] 12/31/2024 9:34 AM L Inj/Asp: R knee Indications: pain Details: 22 G needle, anterolateral approach Medications: 4 mL lidocaine 1 %; 80 mg methylPREDNISolone acetate 80 mg/mL Informed Consent: Site: Knee Laterality: Right Relevant images/test results available and reviewed: yes Health status cleared: Yes Procedure/treatment, purpose, treatment alternatives, risks/potential complications and benefits explained: yes Risk/complications/benefits details: Risks include but are not limited to: The treatment may not accomplish the desired results. Additionally bleeding, infection, damage to tendon, nerve, cartilage, muscle; thinning or lightening of the skin in the area of injection; flushing or redness of the face, elevated blood pressure or blood sugar, allergic reaction, rash, increased pain Benefits include relief of inflammation and pain Patient questions answered: yes Patient agrees, verbalizes understanding, and wants to proceed: yes Consent given by: Patient Informed consent discussion completed by Physician/JENNIFER with patient: Verbal Pre-procedure timeout performed: yes us Nolberto PANTOJA IN CLINIC/BEDSIDE ORDERABLES Fin al Result * XR Knee 4+ Views Right (12/31/2024 8:51 AM EDT) Anatomical Region Laterality Modality Lower Extremities, Knee Right [facility] 12/31/2024 12:1 9 PM EDT Impressions 12/31/2024 12:21 PM EDT No acute fracture or dislocation of the right knee. Trace suprapatellar joint effusion. -------- FINAL REPORT -------- Dictated By: Travis Man Dictated Date: 12/31/2024 12:19 ET Assigned Physician: Travis Man Reviewed and Electronically Signed By: Travis Man Signed Date: 12/31/2024 12:21 ET Workstation ID: [id number] Transcribed By: Self Edit Transcribed Date: 12/31/2024 12:19 ET Narrative 12/31/2024 12:21 PM EDT HISTORY: JOINT PAIN, KNEE TECHNIQUE: 4 views of the right knee COMPARISON: None FINDINGS: No acute fracture or dislocation is seen. There is a trace suprapatellar joint effusion present. The medial and lateral joint spaces appear normal. Procedure Note Travis Man MD - 12/31/2024 HISTORY: JOINT PAIN, KNEE TECHNIQUE: 4 views of the right knee COMPARISON: None FINDINGS: No acute fracture or dislocation is seen. There is a trace suprapatellarjoint effusion present. The medial and lateral joint spaces appearnormal. IMPRESSION: No acute fracture or dislocation of the right knee. Trace suprapatellar joint effusion. -------- FINAL REPORT -------- Dictated By: Travis Man Dictated Date: 12/31/2024 12:19 ET Assigned Physician: Travis Man Reviewed and Electronically Signed By: Travis Man Signed Date: 12/31/2024 12:21 ET Workstation ID: [id number] Transcribed By: Self Edit Transcribed Date: 12/31/2024 12:19 ET us Nolberto PANTOJA IMG XR PROCEDURES Final Result * External Diabetic Retina Eye Exam Report (12/13/2024) Anatomical Region Laterality Modality Ultrasound us Provider [facility] US PROCEDURES Final Result * (ABNORMAL) Hemoglobin A1c (12/05/2024 10:28 AM EDT) Hemoglobin A1C 7.1(H) <6.5 % LAB CHEMISTRY METHOD 12/05/2024 2:42 PM EDT [facility] Mean Bld Glu Estim. 157 mg/dL LAB CHEMISTRY METHOD 12/05/2024 2:42 PM [facility] Blood Venous blood specimen / Unknown Venipuncture / Unknown 12/05/2024 10:28 AM EDT 12/05/2024 10:29 AM EDT us Lasha Campoverde MD LAB BLOOD ORDERABLES F inal Result [facility] [address] [place] [address], * (ABNORMAL) Comprehensive metabolic panel (12/05/2024 10:28 AM EDT) Sodium 134 133 - 145 mmol/L LAB CHEMISTRY METHOD 12/05/2024 1:38 PM [facility] Potassium 4.1 3.5 - 5.5 mmol/L LAB CHEMISTRY METHOD 12/05/2024 1:38 PM [facility] Chloride 101 96 - 110 mmol/L LAB CHEMISTRY METHOD 12/05/2024 1:38 PM [facility] CO2 27 21 - 32 mmol/L LAB CHEMISTRY METHOD 12/05/2024 1:38 PM [facility] Anion Gap 6 3 - 11 LAB CHEMISTRY METHOD 12/05/2024 1:38 PM [facility] Glucose 142(H) 70 - 100 mg/dL LAB CHEMISTRY METHOD 12/05/2024 1:38 PM [facility] BUN 13 5 - 25 mg/dL LAB CHEMISTRY METHOD 12/05/2024 1:38 PM [facility] Creatinine 0.90 0.70 - 1.30 mg/dL LAB CHEMISTRY METHOD 12/05/2024 1:38 PM [facility] eGFR 102 >=60 mL/min/1. 73m2 LAB CHEMISTRY METHOD 12/05/2024 1:38 PM EDT [facility] Comment:Calculation based on the Chronic Kidney Disease Epidemiology Collaboration (CKD-EPI) equation refit without adjustment for race. BUN/Creatinine Ratio 14.4 LAB CHEMISTRY METHOD 12/05/2024 1:38 PM EDT [facility] Calcium 9.7 8.5 - 10.5 mg/dL LAB CHEMISTRY METHOD 12/05/2024 1:38 PM [facility] AST (SGOT) 27 10 - 42 unit/L LAB CHEMISTRY METHOD 12/05/2024 1:38 PM [facility] ALT (SGPT) 51 10 - 60 unit/L LAB CHEMISTRY METHOD 12/05/2024 1:38 PM [facility] Alkaline Phosphatase 124(H) 42 - 121 unit/L LAB CHEMISTRY METHOD 12/05/2024 1:38 PM [facility] Total Protein 6.7 6.0 - 8.0 g/dL LAB CHEMISTRY METHOD 12/05/2024 1:38 PM [facility] Albumin 3.9 3.2 - 5.0 g/dL LAB CHEMISTRY METHOD 12/05/2024 1:38 PM [facility] Total Bilirubin 0.4 0.0 - 1.4 mg/dL LAB CHEMISTRY METHOD 12/05/2024 1:38 PM [facility] Blood Venous blood specimen / Unknown Venipuncture / Unknown 12/05/2024 10:28 AM EDT 12/05/2024 10:29 AM EDT us Lasha Campoverde MD LAB BLOOD ORDERABLES F inal Result [facility] [address] [place] [address], [place] [phone] * Lipid panel with reflex to direct LDL (09/05/2024 10:47 AM EDT) Cholesterol 113 0 - 200 mg/dL LAB CHEMISTRY METHOD 09/05/2024 1:06 PM EDT [facility] Triglycerides 69 0 - 150 mg/dL LAB CHEMISTRY METHOD 09/05/2024 1:06 PM EDT [facility] HDL 53 >=40 mg/dL LAB CHEMISTRY METHOD 09/05/2024 1:06 PM EDT [facility] LDL Calculated 46 0 - 100 mg/dL LAB CHEMISTRY METHOD 09/05/2024 1:06 PM EDT [facility] VLDL Cholesterol Carlos 13.8 mg/dL LAB CHEMISTRY METHOD 09/05/2024 1:06 PM EDT [facility] Non HDL Chol. (LDL+VLDL) 60 <145 mg/dL LAB CHEMISTRY METHOD 09/05/2024 1:06 PM EDT [facility] Chol/HDL Ratio 2.1 0.0 - 4.4 LAB CHEMISTRY METHOD 09/05/2024 1:06 PM EDT [facility] Blood Venous blood specimen / Unknown Venipuncture / Unknown 09/05/2024 10:47 AM EDT 09/05/2024 10:47 AM EDT Lasha Campoverde MD LAB BLOOD ORDERABLES F inal Result [facility] [address] [place] [address], * Microalbumin creatinine urine ratio (09/05/2024 10:47 AM EDT) Creatinine, Urine 35.0 mg/dL LAB CHEMISTRY METHOD 09/05/2024 8:16 PM EDT [facility] Microalb, Ur 5.5 0.0 - 29.0 mg/L LAB CHEMISTRY METHOD 09/05/2024 8:16 PM EDT [facility] Microalb/Creat Ratio 16 <30 mg/g creat LAB CHEMISTRY METHOD 09/05/2024 8:16 PM EDT [facility] Urine Urine specimen obtained by clean catch procedure / Unknown Non-blood Collection / Unknown 09/05/2024 10:47 AM EDT 09/05/2024 10:47 AM EDT us Lasha Campoverde MD LAB URINE ORDERABLES F inal Result [facility] [address] [place] [address], [place] [phone] * Hepatitis panel, acute with reflex to confirmation (06/15/2024 10:40 AM EST) Hepatitis B Surface Ag Negative Negative LAB CHEMISTRY METHOD 06/15/2024 3:08 PM EST [facility] Hepatitis A Antibody IgM Negative Negative LAB CHEMISTRY METHOD 06/15/2024 3:08 PM EST [facility] Hep B Core IgM Negative Negative LAB CHEMISTRY METHOD 06/15/2024 3:08 PM EST [facility] Hepatitis C Antibody Negative Negative LAB CHEMISTRY METHOD 06/15/2024 3:08 PM EST [facility] Blood Venous blood specimen / Unknown Venipuncture / Unknown 06/15/2024 10:40 AM EST 06/15/2024 10:40 AM EST us Lasha Campoverde MD LAB BLOOD ORDERABLES F inal Result [facility] [address] [place] [address], [place] [phone] * HIV 1,2 antibody, p24 antigen with reflex to differentiation (05/08/2024 11:12 AM EST) HIV Combo AB/AG Negative Negative LAB CHEMISTRY METHOD 05/08/2024 3:31 PM EST [facility] Blood Venous blood specimen / Unknown Venipuncture / Unknown 05/08/2024 11:12 AM EST 05/08/2024 11:12 AM EST Narrative [facility] - 05/08/2024 3:31 PM EST This assay is a 4th generation assay allowing for earlier detection of HIV infection by detecting the presence of the HIV-1 p24 antigen as well as the traditional antibodies to HIV type 1 (including group O) and type 2. Use of a 4th generation assay is the current CDC recommendation for HIV screening. Lasha Campoverde MD LAB BLOOD ORDERABLES F inal Result [facility] [address] [place] [address], * Diabetes Foot Exam (02/23/2024) [facility] Diabetes: Annual Foot Exam Abstracted Historical Provider HEALTH MAINTENANCE Final Result * Depression Screening (01/19/2024) [facility] Depression Screening Abstracted [facility] Provider HEALTH MAINTENANCE Final Result * Colonoscopy (03/09/2023) [facility] Colonoscopy No Interpretation , Abstracted Anatomical Region Laterality Modality Other Historical Provider HEALTH MAINTENANCE Final Result from Last 3 Months or Most Recently Relevant to Health Maintenance Insurance [facility] MEDIC[facility] Member Subscriber Plan / Payer (Ef fective 2022-Present) Name:RUEL CORBIN Relation to Subscriber:Self Name:Ruel Corbin Payer ID:[id number] Group ID:[id number] Type:Not on file Address: [address] [place] [id number] Advance Directives Documents on File Type Date Recorded Patient Log Yard Manager Expl anation Advance Directives and Living Will 12/17/2024 11:16 AM Health Care Proxy Signed on 12/17/24 Care Teams User Interface Developer Relationship Specialty Start Date End Date Lasha Campoverde MD [address] [place] [phone] PCP - General 07/02/22
== END 2025-02-20 11:02 | disposition home or self-care (01) ==
LOC: HO.PMC 10:00
PROVIDERS: PCP Podiatrist Foot & Ankle Surgery; Visit Provider Anesthesiology
DX: E11.42 Type 2 diabetes mellitus with diabetic polyneuropathy (principal); G89.4 Chronic pain syndrome
CPT/HCPCS: 17999; 99213

== ENCOUNTER → 2025-02-20 10:00 | Outpatient (BNVA) | payer OTHER, SELFPAY | PROVIDERS: PCP Podiatrist Foot & Ankle Surgery; Visit Provider Anesthesiology | DX: G89.4 Chronic pain syndrome (principal); E11.42 Type 2 diabetes mellitus with diabetic polyneuropathy | CPT/HCPCS: 17999; 99212; J7336 ==